=== PATIENT | female | born 1975 | race Asian ===

== ENCOUNTER 2016-10-02 14:05 | Emergency (ER) | payer OTHER ==
[~2016-10-02] VITALS: Ht 165.1 cm; Wt 60.0 kg
[2016-10-02 14:07] VITALS: BP 108/87; PULSE 103; RESP 16; TEMP 98.9; O2SAT 97
--- NOTE | 2016-10-02 15:05 | PD ---
HPI . patient here requesting pain medication Chief Complaint: Headache Time Seen by Provider: 15:05 Travel History International Travel<30 days: No Contact w/Intl Traveler<30days: No Traveled to known affect area: No History of Present Illness HPI 41 yr old female here tells me she was dropped off by Ms. Ramirez and she wants pain medication. She tells me someone named "Dereck" told her to come and ask for pain medication. She did not mention headache. When asked about it she says ibuprofen works well. She did not take any meds today. SHe has no suicide or homicide ideation. She tells me that sometimes she has a headache and "Dereck" told her to come and get pain meds. She answers questions appropriately, but seems a little confused. She says her caregiver dropper her off here. SHe knows where she is and responds appropriately to all her questions [facility] Past Medical History Cardiovascular Problems: Yes (HYPERLIPIDEMIA) High Cholesterol: Yes Diabetes: No Diminished Hearing: No Hypertension: Yes Musculoskeletal: Yes (CHRONIC LOWER BACK PAIN) Psychiatric: Yes (SCHIZOPHRENIC) Immunizations Current: Yes Schizophrenia: Yes Social History Alcohol Use: No Tobacco Use: Yes Substance Use: No Allergies-Medications (Allergen,Severity, Reaction): Coded Allergies: No Known Allergies (Verified , 01/27/16) Reported Meds & Prescriptions Reported Meds & Active Scripts Active Active Prescriptions or Reported Medications Unobtainable Review of Systems General / Constitutional: No: Fever Eyes: No: Visual changes HENT: No: Headaches Cardiovascular: No: Chest Pain or Discomfort Respiratory: No: Shortness of Breath Gastrointestinal: No: Abdominal Pain Genitourinary: No: Dysuria Musculoskeletal: No: Pain Skin: No Rash Neurologic: No: Weakness Psychiatric: No: Depression Endocrine: No: Polydipsia Hematologic/Lymphatic: No: Easy Bruising Physical Exam Narrative GENERAL:no acute distress, Well-nourished, well-developed patient. answers questions appropriately SKIN: Warm and dry. No visible rashes or bruising. HEAD: Normocephalic and atraumatic. EYES: No scleral icterus. No injection or drainage. EOM intact, PERRLA ENT: No nasal drainage noted. Mucous membranes pink. Airway patent. NECK: Supple, trachea midline. No JVD. CARDIOVASCULAR: Regular rate and rhythm without murmurs, gallops, or rubs. RESPIRATORY: Breath sounds equal bilaterally. No accessory muscle use. No rhonchi or rales. GASTROINTESTINAL: Abdomen soft, non-tender, nondistended. EXTREMITIES: No cyanosis or edema. BACK: Nontender without obvious deformity. No CVA tenderness. NEURO: CN II-12 intact, Data Data Last Documented VS Vital Signs Date Time Temp Pulse Resp B/P Pulse Ox O2 Delivery O2 Flow Rate FiO2 10/02/16 14:07 98.9 103 16 108/87 97 Room Air MDM Medical Decision Making Medical Screen Exam Complete: Yes Emergency Medical Condition: No Medical Record Reviewed: Yes Differential Diagnosis malingering, drug seeking behavior, hx of headache Narrative Course A medical screening exam was performed: At the time of evaluation the presenting medical condition was determined not to be of an emergent nature. The patient was given the option of receiving additional care, but declined. Patient was given options for additional community resources from which to obtain care. The Patient Has Been advised to seek medical attention for their presenting complaint. The patient has been advised to return to the ER at any time if an emergent condition develops. Patient has no evidence of psychiatric issues at this time. She is here asking for pain meds for "Dereck." I advised her that I could not provide pain meds. Diagnosis Primary Impression: Encounter for medical screening examination Scripts Unable to Obtain Active Prescriptions or Reported Meds Condition: Ayaka Monsalve Oct 02, 2016 15:05
== END 2016-10-02 16:23 | disposition left against medical advice (07) ==
LOC: NEPK 14:05
DX: R52 Pain, unspecified (principal); E78.00 Pure hypercholesterolemia, unspecified; E78.5 Hyperlipidemia, unspecified; I10 Essential (primary) hypertension; F20.9 Schizophrenia, unspecified
CPT/HCPCS: 99281

== ENCOUNTER 2017-03-21 09:45 | Inpatient (IN) | payer OTHER ==
[2017-03-21 09:52] VITALS: BP 104/79; PULSE 121; RESP 20; TEMP 97.9; O2SAT 95
[2017-03-21] MEDS ORDERED: SODIUM CHLORIDE 0.9% FLUSH 10 ML FLUSH IV FLUSH PRN ×2 (10:30→13:45)
[2017-03-21 10:54] VITALS: O2SAT 94
--- NOTE | 2017-03-21 11:20 | PD ---
HPI Chief Complaint: Fall Time Seen by Provider: 11:00 Travel History International Travel<30 days: No Contact w/Intl Traveler<30days: No Traveled to known affect area: No History of Present Illness HPI 41-year-old female patient who is has history of schizophrenia, bipolar disorder , presents to the ER today brought in by director of recruitment because of dizziness and frequent falls. Apparently she is constant falling and not able to stand up on her own today. Patient has no complaints, denies any injuries. However, it is unclear whether she is a reliable historian. Modifying Factors: None Associated Signs & Symptoms: Dizziness, falls Risk Factors: Schizophrenic PFSH Past Medical History Cardiovascular Problems: Yes (HYPERLIPIDEMIA) High Cholesterol: Yes Diabetes: No Diminished Hearing: No Hypertension: Yes Musculoskeletal: Yes (CHRONIC LOWER BACK PAIN) Psychiatric: Yes (SCHIZOPHRENIC) Immunizations Current: Yes Schizophrenia: Yes ?: Not Past Surgical History Surgical History: No Previous Surgery Social History Alcohol Use: No Tobacco Use: Yes (8 cig a day ) Substance Use: No Allergies-Medications (Allergen,Severity, Reaction): Coded Allergies: No Known Allergies (Verified Adverse Reaction, Unknown, 03/21/17) Reported Meds & Prescriptions Reported Meds & Active Scripts Active Active Prescriptions or Reported Medications Unobtainable Review of Systems ROS Limitations: Poor Historian (unreliable historian) Physical Exam Narrative GENERAL: Well-developed middle age female patient currently in mild distress. Awake and oriented 3. SKIN: Focused skin assessment warm/dry. HEAD: Atraumatic. Normocephalic. EYES: Pupils equal and round. No scleral icterus. No injection or drainage. ENT: No nasal bleeding or discharge. Mucous membranes pink and moist. NECK: Trachea midline. No JVD. Supple. CARDIOVASCULAR: Regular rate and rhythm. No murmur appreciated. RESPIRATORY: No accessory muscle use. Clear to auscultation. Breath sounds equal bilaterally. GASTROINTESTINAL: Abdomen soft, non-tender, nondistended. Hepatic and splenic margins not palpable. Pelvis: Stable and nontender to palpation. EXTREMITIES: No clubbing, cyanosis, or edema. No joint tenderness, effusion, or edema noted. No obvious deformities or bony injuries. Nontender to palpation. MUSCULOSKELETAL: No obvious deformities. No clubbing. No cyanosis. No edema. NEUROLOGICAL: Awake and alert. No obvious cranial nerve deficits. Motor grossly within normal limits. Normal speech. PSYCHIATRIC: Appropriate mood and flat affect; insight and judgment poor. Data Data Last Documented VS Vital Signs Date Time Temp Pulse Resp B/P (MAP) Pulse Ox O2 Delivery O2 Flow Rate FiO2 03/21/17 10:54 (87) 94 Room Air 03/21/17 10:54 108 18 03/21/17 09:52 97.9 Orders Orders Ammonia (03/21/17 10:28) Complete Blood Count With Diff (03/21/17 10:28) Comprehensive Metabolic Panel (03/21/17 10:28) Troponin I (03/21/17 10:28) Thyroid Stimulating Hormone (03/21/17 10:28) Urinalysis - C+S If Indicated (03/21/17 10:28) Ct Brain W/O Iv Contrast(Rout) (03/21/17 10:28) Blood Glucose (03/21/17 10:28) Ecg Monitoring (03/21/17 10:28) Iv Access Insert/Monitor (03/21/17 10:28) Oximetry (03/21/17 10:28) Sodium Chloride 0.9% Flush (Ns Flush) (03/21/17 10:30) Drug Screen, Random Urine (03/21/17 10:28) Alcohol (Ethanol) (03/21/17 10:28) Ed Urine Pregnancytest Poc (03/21/17 10:28) Valproic Acid (Depakene) (03/21/17 11:01) Urine Culture (03/21/17 11:00) Sodium Chlor 0.9% 1000 Ml Inj (Ns 1000 M (03/21/17 12:00) Blood Culture (03/21/17 11:52) Piperacil-Tazo 4.5 Gm Premix (Zosyn 4.5 (03/21/17 12:24) Admit Order (Ed Use Only) (03/21/17 13:22) Labs Laboratory Tests Test 03/21/17 11:00 03/21/17 11:30 Urine Color YELLOW Urine Turbidity HAZY Urine pH 6.0 Urine Specific [place] 1.015 Urine Protein 100 mg/dL Urine Glucose (UA) NEG mg/dL Urine Ketones NEG mg/dL Urine Occult Blood TRACE Urine Nitrite NEG Urine Bilirubin NEG Urine Urobilinogen LESS THAN 2.0 MG/DL Urine Leukocyte Esterase MOD Urine RBC 1 /hpf Urine WBC 41 /hpf Urine WBC Clumps RARE Urine Squamous Epithelial Cells 2 /hpf Urine Amorphous Sediment RARE Urine Bacteria MOD /hpf Urine Hyaline Casts 1 /lpf Urine Mucus FEW /lpf Microscopic Urinalysis Comment CATH-CULTURE IND Urine Opiates Screen NEG Urine Barbiturates Screen NEG Urine Amphetamines Screen NEG Urine Benzodiazepines Screen NEG Urine Cocaine Screen NEG Urine Cannabinoids Screen NEG White Blood Count 16.4 TH/MM3 Red Blood Count 3.34 MIL/MM3 Hemoglobin 11.3 GM/DL Hematocrit 32.8 % Mean Corpuscular Volume 98.2 FL Mean Corpuscular Hemoglobin 33.9 PG Mean Corpuscular Hemoglobin Concent 34.5 % Red Cell Distribution Width 14.3 % Platelet Count 102 TH/MM3 Mean Platelet Volume 7.9 FL Neutrophils (%) (Auto) 81.9 % Lymphocytes (%) (Auto) 5.1 % Monocytes (%) (Auto) 12.7 % Eosinophils (%) (Auto) 0.0 % Basophils (%) (Auto) 0.3 % Neutrophils # (Auto) 13.4 TH/MM3 Lymphocytes # (Auto) 0.8 TH/MM3 Monocytes # (Auto) 2.1 TH/MM3 Eosinophils # (Auto) 0.0 TH/MM3 Basophils # (Auto) 0.0 TH/MM3 CBC Comment AUTO DIFF Differential Total Cells Counted 100 Neutrophils % (Manual) 23 % Band Neutrophils % 67 % Lymphocytes % 2 % Monocytes % 7 % Neutrophils # (Manual) 14.9 TH/MM3 Myelocytes 1 % Differential Comment FINAL DIFF MANUAL Platelet Estimate LOW Platelet Morphology Comment NORMAL Red Cell Morphology Comment NORMAL Blood Urea Nitrogen 53 MG/DL Creatinine 1.71 MG/DL Random Glucose 108 MG/DL Total Protein 6.7 GM/DL Albumin 2.3 GM/DL Calcium Level 8.9 MG/DL Alkaline Phosphatase 100 U/L Aspartate Amino Transf (AST/SGOT) 19 U/L Alanine Aminotransferase (ALT/SGPT) 13 U/L Total Bilirubin 0.3 MG/DL Sodium Level 137 MEQ/L Potassium Level 3.8 MEQ/L Chloride Level 104 MEQ/L Carbon Dioxide Level 24.7 MEQ/L Anion Gap 8 MEQ/L Estimat Glomerular Filtration Rate 33 ML/MIN Ammonia LESS THAN 10 MCMOL/L Troponin I LESS THAN 0.02 NG/ML Thyroid Stimulating Hormone 3rd Gen 1.440 uIU/ML Valproic Acid (Depakene) Level 91 MCG/ML Ethyl Alcohol Level LESS THAN 3 MG/DL MDM Medical Decision Making Medical Screen Exam Complete: Yes Emergency Medical Condition: Yes Medical Record Reviewed: Yes Interpretation(s) Laboratory Tests Test 03/21/17 11:00 03/21/17 11:30 Urine Turbidity HAZY (CLEAR) Urine Protein 100 mg/dL (NEG-TRACE) Urine Occult Blood TRACE (NEG) Urine Leukocyte Esterase MOD (NEG) Urine WBC 41 /hpf (0-5) Urine WBC Clumps RARE (NONE) Urine Bacteria MOD /hpf (NONE) Urine Mucus FEW /lpf (OCC) White Blood Count 16.4 TH/MM3 (4.0-11.0) Red Blood Count 3.34 MIL/MM3 (4.00-5.30) Hemoglobin 11.3 GM/DL (11.6-15.3) Hematocrit 32.8 % (35.0-46.0) Platelet Count 102 TH/MM3 (150-450) Neutrophils (%) (Auto) 81.9 % (16.0-70.0) Lymphocytes (%) (Auto) 5.1 % (9.0-44.0) Monocytes (%) (Auto) 12.7 % (0.0-8.0) Neutrophils # (Auto) 13.4 TH/MM3 (1.8-7.7) Lymphocytes # (Auto) 0.8 TH/MM3 (1.0-4.8) Monocytes # (Auto) 2.1 TH/MM3 (0-0.9) Band Neutrophils % 67 % (0-6) Lymphocytes % 2 % (9-44) Neutrophils # (Manual) 14.9 TH/MM3 (1.8-7.7) Myelocytes 1 % (0-0) Platelet Estimate LOW (NORMAL) Blood Urea Nitrogen 53 MG/DL (7-18) Creatinine 1.71 MG/DL (0.50-1.00) Random Glucose 108 MG/DL (74-106) Albumin 2.3 GM/DL (3.4-5.0) Estimat Glomerular Filtration Rate 33 ML/MIN (>89) Ammonia LESS THAN 10 MCMOL/L Troponin I LESS THAN 0.02 NG/ML Last [address] 03/21/17 1028 Signed Impressions: Service Date/Time: March 11:10 - CONCLUSION: Unremarkable study. Osei Silverman MD Differential Diagnosis Dizziness, falling: Dehydration versus metabolic issues versus CVA versus medication toxicity Narrative Course CAT scan of the brain is negative for any signs of acute intracranial processes or injuries. Lab work shows significant UTI and sepsis and IV antibiotics were initiated in the ER cultures are drawn. Case is discussed with Dr. Keller for admission. Diagnosis Primary Impression: Severe sepsis Additional Impression: UTI (urinary tract infection) Admitting Information Admitting Physician Requests: Admit Scripts Unable to Obtain Active Prescriptions or Reported Meds Aniyah Tomas MD Mar 21, 2017 11:20
--- NOTE | 2017-03-21 11:21 | RADRPT ---
EXAM DATE/TIME: 03/21/2017 11:10 [place] COMPARISON: CT BRAIN W/O CONTRAST, June 08, 2012, 0:05. INDICATIONS : Altered mental status. RADIATION DOSE: 36.38 CTDIvol (mGy) MEDICAL HISTORY : Hypertension. SURGICAL HISTORY : None. ENCOUNTER: Initial ACUITY: 1 day PAIN SCALE: 0/10 LOCATION: cranial TECHNIQUE: Multiple contiguous axial images were obtained of the head. Using automated exposure control and adjustment of the mA and/or kV according to patient size, radiation dose was kept as low as reasonably achievable to obtain optimal diagnostic quality images. DICOM format image data is av ailable electronically for review and comparison. FINDINGS: There is no evidence for intracranial hemorrhage, mass effect, mass lesions, edema, or extra-axial fl uid collections. The visualized bony structures appear intact. The ventricles are normal size for t he patient's age. There are no signs of acute infarction for technique. CONCLUSION: Unremarkable study. Osei Silverman MD on March 21, 2017 at 11:18 Board Certified Radiologist. This report was verified electronically.
[2017-03-21 11:41] LABS: AUTOMATED NEUTROPHIL # 13.4 TH/MM3 (1.8-7.7); BASOPHIL % 0.3 % (0.0-2.0); HEMATOCRIT 32.8 % (35.0-46.0); HEMOGLOBIN 11.3 GM/DL (11.6-15.3); LYMPH % 5.1 % (9.0-44.0); LYMPHOCYTE # 0.8 TH/MM3 (1.0-4.8); MEAN CELL VOLUME 98.2 FL (80.0-100.0); MEAN CORPUSCULAR HEMOGLOBIN 33.9 PG (27.0-34.0); MEAN CORPUSCULAR HGB CONC 34.5 % (32.0-36.0); MEAN PLATELET VOLUME 7.9 FL (7.0-11.0); MONO % 12.7 % (0.0-8.0); MONOCYTE # 2.1 TH/MM3 (0-0.9); NEUT % 81.9 % (16.0-70.0); PLATELET COUNT 102 TH/MM3 (150-450); RED BLOOD COUNT 3.34 MIL/MM3 (4.00-5.30); RED CELL DISTRIBUTION WIDTH 14.3 % (11.6-17.2); WHITE BLOOD COUNT 16.4 TH/MM3 (4.0-11.0)
[2017-03-21 11:44] LABS: AMORPHOUS SEDIMENT, URINE RARE; BACTERIA, URINE MOD /hpf; BILIRUBIN, URINE NEG (NEG); BLOOD, URINE TRACE (NEG); GLUCOSE,URINE NEG (NEG); HYALINE CAST, URINE 1 /lpf (RARE); KETONE, URINE NEG (NEG); MUCUS URINE FEW /lpf (OCC); NITRITE,URINE NEG (NEG); SQUAMOUS EPITHELIAL CELL URINE 2 /hpf (0-5); URINE COLOR YELLOW (YELLW/STRAW); URINE LEUKOCYTE ESTERASE MOD (NEG); WHITE BLOOD CELL CLUMPS RARE
[2017-03-21 11:52] LABS: ALBUMIN 2.3 GM/DL (3.4-5.0); AST (GOT) 19 U/L (15-37); BICARBONATE 24.7 MEQ/L (21.0-32.0); BLOOD UREA NITROGEN 53 MG/DL (7-18); CALCIUM 8.9 MG/DL (8.5-10.1); CHLORIDE 104 MEQ/L (98-107); CREATININE 1.71 MG/DL (0.50-1.00); GLOMERULAR FILTRATION RATE 33 ML/MIN (>89); GLUCOSE,RANDOM 108 MG/DL (74-106); SODIUM (NA) 137 MEQ/L (136-145)
[2017-03-21] MEDS ORDERED: SODIUM CHLOR 0.9% 1000 ML INJ 1,000 ML IV ONE (12:00)
[2017-03-21 12:03] LABS: ALKALINE PHOSPHATASE 100 U/L (45-117); ALT (GPT) 13 U/L (10-53); TOTAL BILIRUBIN ADULT 0.3 MG/DL (0.2-1.0); TOTAL PROTEIN 6.7 GM/DL (6.4-8.2); TROPONIN I LESS THAN 0.02 NG/ML (0.02-0.05)
[2017-03-21 12:12] LABS: BANDS 67 % (0-6); LYMPHOCYTES 2 % (9-44); MONOCYTES 7 % (0-8); MYELOCYTES 1 % (0-0); NEUTROPHIL # MANUAL DIFF 14.9 TH/MM3 (1.8-7.7); POLYS (SEG NEUTROPHILS) 23 % (16-70)
[2017-03-21] MEDS ORDERED: PIPERACIL-TAZO 4.5 GM PREMIX 100 ML IV STA (12:24)
[2017-03-21 13:31] VITALS: BP 116/63; PULSE 102; RESP 16; O2SAT 100
--- NOTE | 2017-03-21 13:40 | HHI.HP ---
[facility] Service [facility] Primary Care Physician Layo Rodrigez DO Admission Diagnosis UTI/severe sepsis Diagnoses: Chief Complaint: sent from correction for evaluation Travel History International Travel<30 Days: No Contact w/Intl Traveler <30 Da: No Traveled to Known Affected Are: No History of Present Illness 41-year-old female with PMH of schizophrenia, bipolar disorder, presents to the ER today brought in by regulatory consultant because of dizziness and frequent falls. Apparently she is constant falling and not able to stand up on her own today. Patient has no complaints, denies any injuries. However, it is unclear whether she is a reliable historian. Patient is in bed appears sleepy , however she was noted agitated earlier. When asked questions patient responds with no to all questions. History obtained from records, customer care manager, staff, ED physician. Will attempt to obtain records. Review of Systems Except as stated in HPI: all other systems reviewed are Neg Past Family Social History Past Medical History Schizophrenia, bipolar disorder Past Surgical History No surgical surgeries Reported Medications Reported Meds & Active Scripts Active Active Prescriptions or Reported Medications Unobtainable Allergies: Coded Allergies: No Known Allergies (Verified Adverse Reaction, Unknown, 03/21/17) Family History When asked patient says no, however history not reliable 2/2 clinical condition Social History Tobacco use: Per records 8 cig a day. No illicit drug use or EtOH use. Physical Exam Vital Signs Vital Signs Date Time Temp Pulse Resp B/P (MAP) Pulse Ox O2 Delivery O2 Flow Rate FiO2 03/21/17 13:31 102 16 116/63 (80) 100 Room Air 03/21/17 10:54 (87) 94 Room Air 03/21/17 10:54 108 18 93 03/21/17 09:52 97.9 121 20 104/79 (87) 95 Room Air Physical Exam GENERAL: This is a middle age female, well-nourished, well-developed patient, sleepy at this time. SKIN: No rashes, ecchymoses or lesions. Cool and dry. HEAD: Atraumatic. Normocephalic. No temporal or scalp tenderness. EYES: Pupils equal round and reactive. Extraocular motions intact. No scleral icterus. No injection or drainage. ENT: Nose without bleeding, purulent drainage or septal hematoma. Throat without erythema, tonsillar hypertrophy or exudate. Uvula midline. Airway patent. NECK: Trachea midline. No JVD or lymphadenopathy. Supple, nontender, no meningeal signs. CARDIOVASCULAR: Regular rate and rhythm without murmurs, gallops, or rubs. RESPIRATORY: Clear to auscultation. Breath sounds equal bilaterally. No wheezes , rales, or rhonchi. GASTROINTESTINAL: Abdomen soft, non-tender, nondistended. No hepato-splenomegaly , or palpable masses. No guarding. MUSCULOSKELETAL: No obvious deformities. No clubbing. No cyanosis. No edema. No tender to palpation. NEUROLOGICAL: Awake and alert. No obvious cranial nerve deficits. Motor grossly within normal limits. Normal speech. PSYCHIATRIC: Appropriate mood and flat affect; insight and judgment poor. Laboratory Laboratory Tests Test 03/21/17 11:00 03/21/17 11:30 Urine Color YELLOW Urine Turbidity HAZY Urine pH 6.0 Urine Specific [place] 1.015 Urine Protein 100 Urine Glucose (UA) NEG Urine Ketones NEG Urine Occult Blood TRACE Urine Nitrite NEG Urine Bilirubin NEG Urine Urobilinogen LESS THAN 2.0 Urine Leukocyte Esterase MOD Urine RBC 1 Urine WBC 41 Urine WBC Clumps RARE Urine Squamous Epithelial Cells 2 Urine Amorphous Sediment RARE Urine Bacteria MOD Urine Hyaline Casts 1 Urine Mucus FEW Microscopic Urinalysis Comment CATH-CULTURE IND Urine Opiates Screen NEG Urine Barbiturates Screen NEG Urine Amphetamines Screen NEG Urine Benzodiazepines Screen NEG Urine Cocaine Screen NEG Urine Cannabinoids Screen NEG White Blood Count 16.4 Red Blood Count 3.34 Hemoglobin 11.3 Hematocrit 32.8 Mean Corpuscular Volume 98.2 Mean Corpuscular Hemoglobin 33.9 Mean Corpuscular Hemoglobin Concent 34.5 Red Cell Distribution Width 14.3 Platelet Count 102 Mean Platelet Volume 7.9 Neutrophils (%) (Auto) 81.9 Lymphocytes (%) (Auto) 5.1 Monocytes (%) (Auto) 12.7 Eosinophils (%) (Auto) 0.0 Basophils (%) (Auto) 0.3 Neutrophils # (Auto) 13.4 Lymphocytes # (Auto) 0.8 Monocytes # (Auto) 2.1 Eosinophils # (Auto) 0.0 Basophils # (Auto) 0.0 CBC Comment AUTO DIFF Differential Total Cells Counted 100 Neutrophils % (Manual) 23 Band Neutrophils % 67 Lymphocytes % 2 Monocytes % 7 Neutrophils # (Manual) 14.9 Myelocytes 1 Differential Comment FINAL DIFF MANUAL Platelet Estimate LOW Platelet Morphology Comment NORMAL Red Cell Morphology Comment NORMAL Blood Urea Nitrogen 53 Creatinine 1.71 Random Glucose 108 Total Protein 6.7 Albumin 2.3 Calcium Level 8.9 Alkaline Phosphatase 100 Aspartate Amino Transf (AST/SGOT) 19 Alanine Aminotransferase (ALT/SGPT) 13 Total Bilirubin 0.3 Sodium Level 137 Potassium Level 3.8 Chloride Level 104 Carbon Dioxide Level 24.7 Anion Gap 8 Estimat Glomerular Filtration Rate 33 Ammonia LESS THAN 10 Troponin I LESS THAN 0.02 Thyroid Stimulating Hormone 3rd Gen 1.440 Valproic Acid (Depakene) Level 91 Ethyl Alcohol Level LESS THAN 3 Date/Time Source Procedure Growth Status 03/21/17 12:56 Blood Peripheral Aerobic Blood Culture Pending Received 03/21/17 12:56 Blood Peripheral Anaerobic Blood Culture Pending Received 03/21/17 11:00 Urine Catheterized Urine Urine Culture Pending Worksheet Result Diagram: 03/21/17 1130 03/21/17 1130 Imaging Last Impressions Head CT 03/21/17 1028 Signed Impressions: Service Date/Time: March 11:10 - CONCLUSION: Unremarkable study. MD Fantasma Adrian VTE Risk Assessment Caprini VTE Risk Assessment: Mod/High Risk (score >= 2) Caprini Risk Assessment Model Point Value = 1 Point Value = 2 Point Value = 3 Point Value = 5 Age 41-60 Minor surgery BMI > 25 kg/m2 Swollen legs Varicose veins or History of unexplained or recurrent spontaneous Oral contraceptives or hormone replacement Sepsis (< 1 month) Serious lung disease, including pneumonia (< 1 month) Abnormal pulmonary function Acute myocardial infarction Congestive heart failure (< 1 month) History of inflammatory bowel disease Medical patient at bed rest Age 61-74 Arthroscopic surgery Major open surgery (> 45 min) Laparoscopic surgery (> 45 min) Malignancy Confined to bed (> 72 hours) Immobilizing plaster cast Central venous access Age >= 75 History of VTE Family history of VTE Factor V Leiden Prothrombin [id number] Lupus anticoagulant Anticardiolipin antibodies Elevated serum homocysteine Heparin-induced thrombocytopenia Other congenital or acquired thrombophilia Stroke (< 1 month) Elective arthroplasty Hip, pelvis, or leg fracture Acute spinal cord injury (< 1 month) Prophylaxis Regimen Total Risk Factor Score Risk Level Prophylaxis Regimen 0-1 Low Early ambulation 2 Moderate Order ONE of the following: *Sequential Compression Device (SCD) *Heparin 5000 units SQ BID 3-4 Higher Order ONE of the following medications: *Heparin 5000 units SQ TID *Enoxaparin/Lovenox 40 mg SQ daily (WT < 150 kg, CrCl > 30 mL/min) *Enoxaparin/Lovenox 30 mg SQ daily (WT < 150 kg, CrCl > 10-29 mL/min) *Enoxaparin/Lovenox 30 mg SQ BID (WT < 150 kg, CrCl > 30 mL/min) AND/OR *Sequential Compression Device (SCD) 5 or more Highest Order ONE of the following medications: *Heparin 5000 units SQ TID (Preferred with Epidurals) *Enoxaparin/Lovenox 40 mg SQ daily (WT < 150 kg, CrCl > 30 mL/min) *Enoxaparin/Lovenox 30 mg SQ daily (WT < 150 kg, CrCl > 10-29 mL/min) *Enoxaparin/Lovenox 30 mg SQ BID (WT < 150 kg, CrCl > 30 mL/min) AND *Sequential Compression Device (SCD) Assessment and Plan Assessment and Plan Severe Sepsis ( leukocytosis, tachycardia, UTI, acute renal insufficiency) CHAIM Schizophrenia Blood cultures and urine cultures obtained in the ED Received zosyn IV in the ED. Will give Rocephin IV abx as patient with CHAIM. Follow up cultures IVF Monitor Kidney function closely. Will obtain LA per sepsis protocol Restart home meds when available. Do reconciliation meds. DVT ppx SCD/TEDS/ Lovenox per renal dose Discussed Condition With patient, nurse Physician Certification 2 Midnight Certification Type: Admission for Inpatient Services Order for Inpatient Services The services are ordered in accordance with Medicare regulations or non- Medicare payer requirements, as applicable. In the case of services not specified as inpatient-only, they are appropriately provided as inpatient services in accordance with the 2-midnight benchmark. Estimated LOS (days): 3 days is the estimated time the patient will need to remain in the hospital, assuming treatment plan goals are met and no additional complications. Post-Hospital Plan: Home Notes: correction Ester Keller MD Mar 21, 2017 13:40
[2017-03-21] MEDS ORDERED: BISACODYL 10 MG SUPP RECTAL PRN (13:45)
[2017-03-21] MEDS ORDERED: SENNOSIDES 8.6 MG TAB PO PRN (13:45)
[2017-03-21] MEDS ORDERED: TEMAZEPAM 15 MG CAP PO PRN (13:45)
[2017-03-21] MEDS ORDERED: ONDANSETRON HCL 4 MG/2 ML VIAL IVP PRN (13:45)
[2017-03-21] MEDS ORDERED: LACTULOSE SYRUP 20 GM/30 ML CUP PO PRN (13:45)
[2017-03-21] MEDS ORDERED: ACETAMINOPHEN 325 MG TAB PO PRN (13:45)
[2017-03-21] MEDS ORDERED: NALOXONE HCL 0.4 MG/ML AMP IV PUSH PRN (13:45)
[2017-03-21] MEDS ORDERED: MAGNESIUM HYDROXIDE SUSP 30 ML CUP PO PRN (13:45)
[2017-03-21] MEDS ORDERED: ENOXAPARIN SODIUM 40 MG/0.4 ML SYRINGE SQ SCH (14:00)
[2017-03-21 14:03] VITALS: O2SAT 99
[2017-03-21] MEDS ORDERED: RISP4TAB41 PO (14:49)
[2017-03-21] MEDS ORDERED: TEMA30CA PO (14:49)
[2017-03-21] MEDS ORDERED: NAPR500T2 PO (14:49)
[2017-03-21] MEDS ORDERED: TRAZ100T10 PO (14:49)
[2017-03-21] MEDS ORDERED: DIVA250T PO (14:49)
[2017-03-21] MEDS ORDERED: SERO300T PO (14:49)
[2017-03-21 16:00] VITALS: BP 103/64; PULSE 93; RESP 16; TEMP 97.5; O2SAT 97
[2017-03-21] MEDS: SODIUM CHLOR 0.9% 1000 ML INJ 1,000 ML IV SCH (16:33)
[2017-03-21] MEDS: cefTRIAXone INJ 1,000 MG in SODIUM CHLORIDE 0.9% INJ 100 ML IV SCH (16:34)
[2017-03-21] MEDS: SODIUM CHLORIDE 0.9% FLUSH 10 ML FLUSH IV FLUSH SCH (20:54)
[2017-03-21] MEDS: DOCUSATE SODIUM 50 MG/SENNA 8.6 MG TAB PO SCH (20:55)
[2017-03-21 21:06] VITALS: BP 118/76; PULSE 100; RESP 17; TEMP 97.6; O2SAT 94
[2017-03-22 01:07] VITALS: BP 108/76; PULSE 95; RESP 17; TEMP 97.5; O2SAT 96
[2017-03-22] MEDS: SODIUM CHLOR 0.9% 1000 ML INJ 1,000 ML IV SCH ×3 (04:43→21:31)
[2017-03-22 05:59] VITALS: BP 116/71; PULSE 102; RESP 18; TEMP 98; O2SAT 94
[2017-03-22 07:18] LABS: HEMATOCRIT 30.6 % (35.0-46.0); HEMOGLOBIN 10.5 GM/DL (11.6-15.3); MEAN CELL VOLUME 98.6 FL (80.0-100.0); MEAN CORPUSCULAR HEMOGLOBIN 33.8 PG (27.0-34.0); MEAN CORPUSCULAR HGB CONC 34.3 % (32.0-36.0); MEAN PLATELET VOLUME 8.7 FL (7.0-11.0); PLATELET COUNT 76 TH/MM3 (150-450); RED CELL DISTRIBUTION WIDTH 14.6 % (11.6-17.2); WHITE BLOOD COUNT 12.8 TH/MM3 (4.0-11.0)
[2017-03-22 07:40] LABS: CALCIUM 8.7 MG/DL (8.5-10.1); CREATININE 1.02 MG/DL (0.50-1.00)
[2017-03-22] MEDS: SODIUM CHLORIDE 0.9% FLUSH 10 ML FLUSH IV FLUSH SCH ×2 (07:50→21:27)
[2017-03-22 08:00] VITALS: BP 105/57; PULSE 90; RESP 16; TEMP 98.8; O2SAT 95
[2017-03-22] MEDS: DOCUSATE SODIUM 50 MG/SENNA 8.6 MG TAB PO SCH ×2 (08:13→21:26)
--- NOTE | 2017-03-22 08:37 | HHI.PR ---
Subjective Remarks In the bed appears in nad. Doesn't answer questions and doesn't follow commands. Doesn't appear toxic. Objective Vitals Vital Signs Date Time Temp Pulse Resp B/P (MAP) Pulse Ox O2 Delivery O2 Flow Rate FiO2 03/22/17 05:59 98.0 102 18 116/71 (86) 94 03/22/17 01:07 97.5 95 17 108/76 (87) 96 03/21/17 21:06 97.6 100 17 118/76 (90) 94 03/21/17 16:00 97.5 93 16 103/64 (77) 97 03/21/17 15:28 (80) 21 03/21/17 14:03 99 21 03/21/17 13:31 102 16 116/63 (80) 100 Room Air 03/21/17 10:54 (87) 94 Room Air 03/21/17 10:54 108 18 93 03/21/17 09:52 97.9 121 20 104/79 (87) 95 Room Air I/O 03/21/17 03/21/17 03/21/17 03/22/17 03/22/17 03/22/17 07:00 15:00 23:00 07:00 15:00 23:00 Intake Total 1100 ml 120 ml Balance 1100 ml 120 ml Intake Oral 120 ml IV Total 1100 ml # Voids 1 1 Result Diagram: 03/22/17 0555 03/22/17 0555 Imaging Last Impressions Head CT 03/21/17 1028 Signed Impressions: Service Date/Time: March 11:10 - CONCLUSION: Unremarkable study. KBrenna Silverman MD Objective Remarks GENERAL: This is a middle age female, well-nourished, well-developed patient, sleepy at this time. CARDIOVASCULAR: Regular rate and rhythm without murmurs, gallops, or rubs. RESPIRATORY: Clear to auscultation. Breath sounds equal bilaterally. No wheezes , rales, or rhonchi. GASTROINTESTINAL: Abdomen soft, non-tender, nondistended. No hepato-splenomegaly , or palpable masses. No guarding. MUSCULOSKELETAL: No obvious deformities. No clubbing. No cyanosis. No edema. No tender to palpation. NEUROLOGICAL: Awake and alert. No obvious cranial nerve deficits. Motor grossly within normal limits. Normal speech. PSYCHIATRIC: Appropriate mood and flat affect; insight and judgment poor. A/P Assessment and Plan Severe Sepsis (leukocytosis, tachycardia, UTI, acute renal insufficiency). Improving. CHAIM Schizophrenia Blood cultures and urine cultures obtained in the ED Received zosyn IV in the ED. Will give Rocephin IV abx as patient with CHAIM. Follow up cultures IVF Monitor Kidney function closely Will obtain LA per sepsis protocol Restart home meds when available. Do reconciliation meds Consult psych , discussed with Dr Morfin will obtain meds otherwise patien tmight be DC to med psych for further treatment DVT ppx SCD/TEDS/ Lovenox per renal dose Discussed Condition With patient, nurse, Ester Taylor MD Mar 22, 2017 08:37
[2017-03-22 08:38] LABS: BANDS 33 % (0-6); LYMPHOCYTES 2 % (9-44); METAMYELOCYTES 2 % (0-1); MONOCYTES 11 % (0-8); MYELOCYTES 4 % (0-0); NEUTROPHIL # MANUAL DIFF 11.1 TH/MM3 (1.8-7.7); POLYS (SEG NEUTROPHILS) 48 % (16-70)
[2017-03-22 08:39] LABS: DOHLE BODIES PRESENT (NONE SEEN); TOXIC GRANULATION 1+ (NORMAL)
[2017-03-22 12:00] VITALS: BP 110/63; PULSE 88; RESP 16; TEMP 97.9; O2SAT 98
--- NOTE | 2017-03-22 13:35 | PD.PSY.CON ---
Provisional Diagnosis Admission Date Mar 21, 2017 at 13:23 [place] I. Schizophrenia [place] II. Deferred [place] III. UTI, sepsis History of Present Illness Service Psychiatry Consult Requested By Primary attending Reason for Consult History of schizophrenia Primary Care Physician Layo Rodrigez, DO HPI The patient is a 41-year-old woman, single, domiciled, with psychiatric history of schizophrenia, bipolar disorder, multiple psychiatric hospitalizations, he was hospitalized here at [place] in 2013 under the care of Dr. Kirby, documentation review, I do not have details about take at hospitalizations, as per records she is on Depakote 250 mg, Risperdal 4 mg, Seroquel 600 mg, temazepam 30 mg, trazodone 100 mg, recurrent Depakote levels are 91, no significant medical history, who presents to the ER today brought in by instrument maker apprentice because of dizziness and frequent falls. Apparently she is constant falling and not able to stand up on her own today. Patient has no complaints, denies any injuries. However, it is unclear whether she is a reliable historian. Patient is in bed appears sleepy , however she was noted agitated earlier. When asked questions patient responds with no to all questions. History obtained from records, resident care coordinator, staff, ED physician. Will attempt to obtain records. She is admitted with sepsis and UTI. Consulted to psychiatry for reconciliation of medication and disorganized speech and behavior. On psychiatric evaluation patient is non-cooperative. She is restrained in 2 points. Patient at the beginning is sleeping, but easily arousable. Oppositional, resistant, but with redirection she could answer some questions. She says that she feels okay. She doesn't know the reason she is here. She knows she is in [place], but doesn't remember the time. She says that we are 1974. She reports good mood, denies depression, denies suicidal and homicidal ideation. Patient says that she is hearing voices telling her to bang her head. She says also that she hears the voice of Dereck and Yamilex. She says that they are good people and they want her to go to their house to age seems to be very tangential, disorganized, unable to provide any meaningful information for the psychiatric assessment. As per nursing charge patient has been kind of agitated, very confused, hyperactive. Review of Systems Constitutional: DENIES: Diaphoretic episodes, Fatigue, Fever, Weight gain, Weight loss, Chills, Dizziness, Change in appetite, Night Sweats Endocrine: DENIES: Abnorml menstrual pattern, Heat/cold intolerance, Polydipsia , Polyuria, Polyphagia Ears, nose, mouth, throat: DENIES: Tinnitus, Hearing loss, Vertigo, Nasal discharge, Oral lesions, Throat pain, Hoarseness, Ear Pain, Running Nose, Epistaxis, Sinus Pain, Toothache, Odynophagia Respiratory: DENIES: Apneas, Cough, Snoring, Wheezing, Hemoptysis, Sputum production, Shortness of breath Cardiovascular: DENIES: Chest pain, Palpitations, Syncope, Dyspnea on Exertion , PND, Lower Extremity Edema, Orthopnea, Claudication Gastrointestinal: DENIES: Abdominal pain, Black stools, Bloody stools, Constipation, Diarrhea, Nausea, Vomiting, Difficulty Swallowing, Anorexia Genitourinary: DENIES: Abnormal vaginal bleeding, Dysmenorrhea, Dyspareunia, Sexual dysfunction, Urinary frequency, Urinary incontinence, Urgency, Hematuria , Dysuria, Nocturia, Vaginal discharge Musculoskeletal: DENIES: Joint pain, Muscle aches, Stiffness, Joint Swelling, Back pain, Neck pain Integumentary: DENIES: Abnormal pigmentation, Pruritus, Rash, Nail changes, Breast masses, Breast skin changes, Nipple discharge Hematologic/lymphatic: DENIES: Bruising, Lymphadenopathy Immunologic/allergic: DENIES: Eczema, Urticaria Neurologic: DENIES: Abnormal gait, Headache, Localized weakness, Paresthesias, Seizures, Speech Problems, Tremor, Poor Balance Psychiatric: DENIES: Anxiety, Confusion, Mood changes, Depression, Hallucinations, Agitation, Suicidal Ideation, Homicidal Ideation, Delusions Past Family Social History Coded Allergies: No Known Allergies (Verified Adverse Reaction, Unknown, 03/21/17) Reported Medications Risperidone (Risperdal) 4 Mg Tab, 4 MG PO DAILY, #30 TAB 0 Refills 03/21/17 Trazodone (Trazodone) 100 Mg Tablet, 100 MG PO HS for Control Depression, #30 TAB 0 Refills 03/21/17 Temazepam (Temazepam) 30 Mg Cap, 30 MG PO HS Y for INSOMNIA, #30 CAP 0 Refills 03/21/17 Quetiapine (Seroquel) 300 Mg Tab, 600 MG PO HS, #30 TAB 0 Refills 1/4/[address] (Divalproex DR) 250 Mg Tabdr, 250 MG PO BID for Control Seizures, #60 TAB 0 Refills 03/21/17 Naproxen (Naproxen) 500 Mg Tab, 500 MG PO BID, #60 TAB 0 Refills 03/21/17 Current Medications Medications (Trade) Dose Ordered Sig/Deonte Route Start Time Stop Time Status Last Admin Sodium Chloride 1,000 ml @ 100 mls/hr Q10H IV 03/21/17 13:38 03/22/17 04:43 (NS Flush) 2 ml UNSCH PRN IV FLUSH 03/21/17 13:45 (NS Flush) 2 ml BID IV FLUSH 03/21/17 21:00 03/21/17 20:54 (Tylenol) 650 mg Q4H PRN PO 03/21/17 13:45 (Zofran Inj) 4 mg Q6H PRN IVP 03/21/17 13:45 (Restoril) 15 mg HS PRN PO 03/21/17 13:45 (Lovenox Inj) 40 mg Q24H SQ 03/21/17 14:00 03/21/17 16:33 (Narcan Inj) 0.4 mg UNSCH PRN IV PUSH 03/21/17 13:45 (Denisse-Colace) 1 tab BID PO 03/21/17 21:00 03/22/17 08:13 (Milk Of Magnesia Liq) 30 ml Q12H PRN PO 03/21/17 13:45 (Senokot) 17.2 mg Q12H PRN PO 03/21/17 13:45 (Dulcolax Supp) 10 mg DAILY PRN RECTAL 03/21/17 13:45 (Lactulose Liq) 30 ml DAILY PRN PO 03/21/17 13:45 Ceftriaxone Sodium 1000 mg/ Sodium Chloride 100 ml @ 200 mls/hr Q24H IV 03/21/17 15:00 03/21/17 16:34 Family Psych History Patient is too disorganized to cooperate with this information Social History Patient is too disorganized to cooperate with this information Patient's Strengths (min. 2) She seems to be aching her psychotropics, her Valproic acid level is level was 91 Physical Exam Vital Signs Vital Signs Date Time Temp Pulse Resp B/P (MAP) Pulse Ox O2 Delivery O2 Flow Rate FiO2 03/22/17 08:00 98.8 90 16 105/57 (73) 95 03/21/17 15:28 21 03/21/17 13:31 Room Air Lab Results Test 03/21/17 17:43 03/22/17 05:55 Lactic Acid Level 1.6 mmol/L White Blood Count 12.8 TH/MM3 Red Blood Count 3.10 MIL/MM3 Hemoglobin 10.5 GM/DL Hematocrit 30.6 % Mean Corpuscular Volume 98.6 FL Mean Corpuscular Hemoglobin 33.8 PG Mean Corpuscular Hemoglobin Concent 34.3 % Red Cell Distribution Width 14.6 % Platelet Count 76 TH/MM3 Mean Platelet Volume 8.7 FL CBC Comment AUTO DIFF Differential Total Cells Counted 100 Neutrophils % (Manual) 48 % Band Neutrophils % 33 % Lymphocytes % 2 % Monocytes % 11 % Neutrophils # (Manual) 11.1 TH/MM3 Metamyelocytes 2 % Myelocytes 4 % Differential Comment FINAL DIFF MANUAL Toxic Granulation 1+ Dohle Bodies PRESENT Platelet Estimate LOW Platelet Morphology Comment NORMAL Blood Urea Nitrogen 30 MG/DL Creatinine 1.02 MG/DL Random Glucose 103 MG/DL Calcium Level 8.7 MG/DL Sodium Level 141 MEQ/L Potassium Level 4.0 MEQ/L Chloride Level 111 MEQ/L Carbon Dioxide Level 23.0 MEQ/L Anion Gap 7 MEQ/L Estimat Glomerular Filtration Rate 59 ML/MIN Date/Time Source Procedure Growth Status 03/21/17 12:56 Blood Peripheral Aerobic Blood Culture - Preliminary NO GROWTH IN 1 DAY Resulted 03/21/17 12:56 Blood Peripheral Anaerobic Blood Culture - Preliminary NO GROWTH IN 1 DAY Resulted 03/21/17 11:00 Urine Catheterized Urine Urine Culture - Preliminary Gram Negative Jw Resulted Mental Status Examination Appearance: Disheveled Orientation: Person, Place Motor Activity: Abnormal gait Speech: Rapid, Incoherent Fund of Knowledge: Inadequate Attention and Concentration: Easily Distracted Memory: Impaired Mood: Oppositional Affect: Irritable Thought Process & Associations: Loose associations, Disorganized Thought Content: Bizarre thinking Hallucination Type: Auditory Delusion Type: None Suicidal Ideation: No Suicidal Plan: No Suicidal Intention: No Homicidal Ideation: No Homicidal Plan: No Homicidal Intention: No Insight: Poor Judgment: Poor Assessment & Plan Problem List: (1) Schizophrenia ICD Codes: F20.9 - Schizophrenia Status: Acute Assessment & Plan: The patient has had psychiatric history of schizophrenia, she has some point encounters and hospitalizations here in [place], documentation was reviewed. At the moment of my evaluation today the patient seems to be very confused, disorganized, tangential, unable to provide any meaningful information for the psychiatric assessment. As per records the patient has been in Risperdal 4 mg, Seroquel 600 mg, trazodone 100 mg temazepam 30 mg and valproic acid 250 minute 1 twice a day. Her Depakote level is 91, which mean that most probably the patient has been compliant with her psychotropics. At this moment I do not have any collateral information, have tried to call Hailee Vega [phone] and also Geraldo Reynoso [phone], both person listed as contact in the record, but they did not diamond picker the phone. Collateral is crucial to confirm baseline. I am going to restart the Seroquel 600 mg, Depakote 250 mg and Trazodone 100 mg. I will follow-up. Assessment & Plan Estimated LOS: Mane Kang MD Mar 22, 2017 13:35
[2017-03-22] MEDS: DIVALPROEX SODIUM DELAYED RELEASE 250 MG TAB PO SCH ×2 (14:41→21:26)
[2017-03-22] MEDS: cefTRIAXone INJ 1,000 MG in SODIUM CHLORIDE 0.9% INJ 100 ML IV SCH (14:41)
[2017-03-22 16:00] VITALS: BP 108/69; PULSE 88; RESP 16; TEMP 97.5; O2SAT 99
[2017-03-22 20:00] VITALS: BP 109/63; PULSE 97; RESP 18; TEMP 97.5; O2SAT 95
[2017-03-22] MEDS: traZODone HCL 100 MG TAB PO SCH (21:26)
[2017-03-22] MEDS: QUEtiapine FUMARATE 300 MG TAB PO SCH (21:26)
--- NOTE | 2017-03-22 22:41 | EKG ---
Date Performed: 03/21/2017 Time Performed: 19:46:15 PTAGE: 41 years EKG: SINUS TACHYCARDIA NONSPECIFIC T-WAVE ABNORMALITY ABNORMAL RHYTHM ECG PREVIOUS TRACING : 09/08/2000 11.35 Compared to prior tracing no significant change DOCTOR: Wolf Brian Interpretating Date/Time 03/22/2017 22:41:10
[2017-03-23] VITALS: BP 101/57; PULSE 83; RESP 18; TEMP 98.6; O2SAT 98
[2017-03-23] MEDS: SODIUM CHLOR 0.9% 1000 ML INJ 1,000 ML IV SCH ×2 (05:38→08:42)
[2017-03-23 07:41] VITALS: BP 104/63; PULSE 90; RESP 18; TEMP 99.2; O2SAT 95
[2017-03-23 08:38] LABS: HEMATOCRIT 31.4 % (35.0-46.0); HEMOGLOBIN 10.6 GM/DL (11.6-15.3); MEAN CELL VOLUME 98.6 FL (80.0-100.0); MEAN CORPUSCULAR HEMOGLOBIN 33.3 PG (27.0-34.0); MEAN CORPUSCULAR HGB CONC 33.7 % (32.0-36.0); MEAN PLATELET VOLUME 8.6 FL (7.0-11.0); PLATELET COUNT 72 TH/MM3 (150-450); RED BLOOD COUNT 3.18 MIL/MM3 (4.00-5.30); RED CELL DISTRIBUTION WIDTH 14.6 % (11.6-17.2); WHITE BLOOD COUNT 7.5 TH/MM3 (4.0-11.0)
[2017-03-23] MEDS: DIVALPROEX SODIUM DELAYED RELEASE 250 MG TAB PO SCH ×2 (08:42→21:37)
[2017-03-23] MEDS: DOCUSATE SODIUM 50 MG/SENNA 8.6 MG TAB PO SCH ×2 (08:42→21:36)
[2017-03-23] MEDS: SODIUM CHLORIDE 0.9% FLUSH 10 ML FLUSH IV FLUSH SCH ×2 (08:42→21:35)
--- NOTE | 2017-03-23 09:01 | HHI.PR ---
Subjective Remarks Follow up UTI, sepsis, acute kidney injury. The patient reports no complaints at this time. She denies chest pain, dyspnea, nausea, vomiting. Objective Vitals Vital Signs Date Time Temp Pulse Resp B/P (MAP) Pulse Ox O2 Delivery O2 Flow Rate FiO2 03/23/17 07:41 99.2 90 18 104/63 (77) 95 03/23/17 00:00 98.6 83 18 101/57 (72) 98 03/22/17 20:00 97.5 97 18 109/63 (78) 95 03/22/17 16:00 97.5 88 16 108/69 (82) 99 03/22/17 12:00 97.9 88 16 110/63 (79) 98 I/O 03/22/17 03/22/17 03/22/17 03/23/17 03/23/17 03/23/17 07:00 15:00 23:00 07:00 15:00 23:00 Intake Total 966 ml 800 ml Balance 966 ml 800 ml IV Total 966 ml 800 ml # Voids 1 1 2 4 # Bowel Movements 1 3 2 Result Diagram: 03/23/17 0822 03/22/17 0555 Imaging Last Impressions Head CT 03/21/17 1028 Signed Impressions: Service Date/Time: March 11:10 - CONCLUSION: Unremarkable study. Osei Silverman MD Objective Remarks General: No acute distress. In soft wrist restraint. Heart: Regular rate and rhythm. No murmur. Lungs: Clear to auscultation bilaterally. No wheezes, rales, or rhonchi. Breathing is nonlabored. Abdomen: Soft, nontender, nondistended. Extremities: No lower extremity edema. Psych: Alert, answers questions appropriately. Procedures None Urinary Catheter: No Vascular Central Line Catheter: No A/P Assessment and Plan 1. Severe sepsis: Patient presented with leukocytosis, tachycardia, UTI, acute renal insufficiency. Continue antibiotics. Blood cultures are negative so far. Urine culture growing Escherichia coli, sensitive to Rocephin. 2. Acute kidney injury: Creatinine trending down. Labs are pending this morning. Continue IV fluids. 3. Schizophrenia: Appreciate psychiatry recommendations. Continue Seroquel. 4. DVT prophylaxis: SCDs, Oral Grider. Beau Schaefer MD 6, 2018 09:01
[2017-03-23 09:07] LABS: BICARBONATE 22.2 MEQ/L (21.0-32.0); CALCIUM 8.5 MG/DL (8.5-10.1); CREATININE 0.73 MG/DL (0.50-1.00)
[2017-03-23 09:21] LABS: BANDS 8 % (0-6); LYMPHOCYTES 17 % (9-44); METAMYELOCYTES 4 % (0-1); MONOCYTES 14 % (0-8); MYELOCYTES 2 % (0-0); NEUTROPHIL # MANUAL DIFF 5.2 TH/MM3 (1.8-7.7); POLYS (SEG NEUTROPHILS) 54 % (16-70); PROMYELOCYTES 1 % (0-0)
[2017-03-23 09:39] VITALS: O2SAT 94
[2017-03-23 11:57] VITALS: BP 116/68; PULSE 92; RESP 18; TEMP 98.1; O2SAT 95
[2017-03-23 16:36] VITALS: BP 134/73; PULSE 94; RESP 20; TEMP 98.9; O2SAT 96
[2017-03-23] MEDS: cefTRIAXone INJ 1,000 MG in SODIUM CHLORIDE 0.9% INJ 100 ML IV SCH (18:22)
[2017-03-23 20:47] VITALS: BP 112/57; PULSE 95; RESP 18; TEMP 99.6; O2SAT 94
[2017-03-23] MEDS: QUEtiapine FUMARATE 300 MG TAB PO SCH (21:36)
[2017-03-23] MEDS: traZODone HCL 100 MG TAB PO SCH (21:36)
[2017-03-24] VITALS (8 sets, daily range): BP systolic 116–134; BP diastolic 56–74; PULSE 90–97; RESP 18–20; TEMP 98.4–99.2; O2SAT 93–95
[2017-03-24] MEDS: SODIUM CHLOR 0.9% 1000 ML INJ 1,000 ML IV SCH ×3 (00:47→21:38)
--- NOTE | 2017-03-24 09:06 | HHI.PR ---
Subjective Remarks Follow up UTI, confusion. Patient reports no complaints at this time. Per nursing, no events overnight. Objective Vitals Vital Signs Date Time Temp Pulse Resp B/P (MAP) Pulse Ox O2 Delivery O2 Flow Rate FiO2 03/24/17 07:59 99.2 93 20 116/56 (76) 95 03/24/17 05:53 98.9 97 18 121/74 (90) 93 03/24/17 02:00 98.4 92 18 117/72 (87) 94 03/23/17 20:47 99.6 95 18 112/57 (75) 94 03/23/17 16:36 98.9 94 20 134/73 (93) 96 03/23/17 11:57 98.1 92 18 116/68 (84) 95 03/23/17 09:39 94 21 I/O 03/23/17 03/23/17 03/23/17 03/24/17 03/24/17 03/24/17 07:00 15:00 23:00 07:00 15:00 23:00 Intake Total 800 ml 1000 ml 1220 ml Balance 800 ml 1000 ml 1220 ml Intake Oral 120 ml IV Total 800 ml 1000 ml 1100 ml # Voids 4 3 # Bowel Movements 2 1 Result Diagram: 03/23/17 0822 03/23/17 0822 Imaging Last Impressions Head CT 03/21/17 1028 Signed Impressions: Service Date/Time: March 11:10 - CONCLUSION: Unremarkable study. Osei Silverman MD Objective Remarks General: No acute distress. In soft wrist restraint. Heart: Regular rate and rhythm. No murmur. Lungs: Clear to auscultation bilaterally. No wheezes, rales, or rhonchi. Breathing is nonlabored. Abdomen: Soft, nontender, nondistended. Extremities: No lower extremity edema. Psych: Alert, answers questions appropriately. Procedures None Urinary Catheter: No Vascular Central Line Catheter: No A/P Assessment and Plan 1. Severe sepsis: Patient presented with leukocytosis, tachycardia, UTI, acute renal insufficiency. Continue antibiotics. Blood cultures are negative so far. Urine culture growing Escherichia coli, sensitive to Rocephin. 2. Acute kidney injury: Resolved. 3. Schizophrenia: Appreciate psychiatry recommendations. Continue Seroquel. 4. DVT prophylaxis: SCDs, Oral Grider. Discharge Planning Plan for discharge to [facility] soon, pending psychiatry clearance. Beau Schaefer MD Mar 24, 2017 09:06
[2017-03-24] MEDS: DOCUSATE SODIUM 50 MG/SENNA 8.6 MG TAB PO SCH ×2 (12:48→22:18)
[2017-03-24] MEDS: DIVALPROEX SODIUM DELAYED RELEASE 250 MG TAB PO SCH ×2 (12:48→22:18)
[2017-03-24] MEDS: cefTRIAXone INJ 1,000 MG in SODIUM CHLORIDE 0.9% INJ 100 ML IV SCH (18:08)
[2017-03-24] MEDS: SODIUM CHLORIDE 0.9% FLUSH 10 ML FLUSH IV FLUSH SCH ×2 (18:11→22:18)
[2017-03-24] MEDS: traZODone HCL 100 MG TAB PO SCH (22:17)
[2017-03-24] MEDS: QUEtiapine FUMARATE 300 MG TAB PO SCH (22:17)
[2017-03-25] VITALS (7 sets, daily range): BP systolic 116–129; BP diastolic 56–71; PULSE 79–90; RESP 15–19; TEMP 98.3–99.6; O2SAT 91–99
[2017-03-25] MEDS: SODIUM CHLOR 0.9% 1000 ML INJ 1,000 ML IV SCH ×2 (06:45→16:32)
[2017-03-25] MEDS: DIVALPROEX SODIUM DELAYED RELEASE 250 MG TAB PO SCH ×2 (09:15→21:16)
[2017-03-25] MEDS: DOCUSATE SODIUM 50 MG/SENNA 8.6 MG TAB PO SCH ×2 (09:15→21:16)
[2017-03-25] MEDS: SODIUM CHLORIDE 0.9% FLUSH 10 ML FLUSH IV FLUSH SCH ×2 (09:15→21:00)
--- NOTE | 2017-03-25 09:19 | HHI.PR ---
Subjective Remarks Follow up UTI, confusion. Patient denies pain. No events reported by nursing. Objective Vitals Vital Signs Date Time Temp Pulse Resp B/P (MAP) Pulse Ox O2 Delivery O2 Flow Rate FiO2 03/25/17 08:27 99.4 90 16 116/66 (83) 91 03/25/17 07:17 92 21 03/25/17 06:59 99.6 79 18 129/71 (90) 94 03/25/17 01:32 99.0 87 18 118/61 (80) 99 03/24/17 20:40 99.1 92 18 126/66 (86) 94 03/24/17 17:30 94 21 03/24/17 16:05 99.2 90 20 134/60 (84) 94 03/24/17 12:40 98.6 91 20 120/72 (88) 95 I/O 03/24/17 03/24/17 03/24/17 03/25/17 03/25/17 03/25/17 07:00 15:00 23:00 07:00 15:00 23:00 Intake Total 660 ml 1000 ml Balance 660 ml 1000 ml Intake Oral 660 ml IV Total 1000 ml # Voids 2 3 2 # Bowel Movements 1 1 2 Result Diagram: 03/23/17 0822 03/23/17 0822 Imaging Last Impressions Head CT 03/21/17 1028 Signed Impressions: Service Date/Time: March 11:10 - CONCLUSION: Unremarkable study. Osei Silverman MD Objective Remarks General: No acute distress. In soft wrist restraints. Heart: Regular rate and rhythm. No murmur. Lungs: Clear to auscultation bilaterally. No wheezes, rales, or rhonchi. Breathing is nonlabored. Abdomen: Soft, nontender, nondistended. Extremities: No lower extremity edema. Psych: Alert, confused. Procedures None Urinary Catheter: No Vascular Central Line Catheter: No A/P Assessment and Plan 03/25/17 No change. Continue antibiotics, likely switch to oral at discharge. Awaiting psychiatry clearance [facility]. Will try to remove restraints today. 1. Severe sepsis: Patient presented with leukocytosis, tachycardia, UTI, acute renal insufficiency. Continue antibiotics. Blood cultures are negative so far. Urine culture growing Escherichia coli, sensitive to Rocephin. 2. Acute kidney injury: Resolved. 3. Schizophrenia: Appreciate psychiatry recommendations. Continue Seroquel. 4. DVT prophylaxis: EMERYs, Oral Grider. Discharge Planning Plan for discharge to prison soon, pending psychiatry clearance. Beau Schaefer MD Mar 25, 2017 09:19
--- NOTE | 2017-03-25 10:25 | HHI.PYPN ---
Subjective Remarks I have seen and examined this patient for psychiatric reevaluation today. I have reviewed the documentation from hospitalist. I also have discussed the patient with the nurse in charge. On psychiatric evaluation today patient continues to be restrained in upper extremities. Patient is calm, superficially cooperative, pleasantly confused and disoriented. Patient answers simple questions, but doesn't elaborate. During my evaluation patient continues to be smiling, appropriate, she says that she is happy, she denies pain, denies depressive symptoms, denies suicidal or homicidal ideation, she denies visual and auditory hallucinations. Even though the patient seems to have a disorganized and tangential thought process, that reportedly her baseline , she is able to say that she is in the hospital because she is sick, but she doesn't remember today's date. As per nurse no agitation or aggressive behavior reported. No behavioral dysregulation reported. She has been compliant with her medications, side effects. Review of Systems Psychiatric: COMPLAINS OF: Confusion Mental Status Examination Appearance: Disheveled Orientation: Person, Place Motor Activity: Abnormal gait Speech: Rapid, Incoherent Fund of Knowledge: Inadequate Attention and Concentration: Easily Distracted Memory: Impaired Mood: Oppositional Affect: Irritable Thought Process & Associations: Loose associations, Disorganized Thought Content: Bizarre thinking Hallucination Type: Auditory Delusion Type: None Suicidal Ideation: No Suicidal Plan: No Suicidal Intention: No Homicidal Ideation: No Homicidal Plan: No Homicidal Intention: No Insight: Poor Judgment: Poor Results Labs Date/Time Source Procedure Growth Status 03/21/17 12:56 Blood Peripheral Aerobic Blood Culture - Preliminary NO GROWTH IN 3 DAYS Resulted 03/21/17 12:56 Blood Peripheral Anaerobic Blood Culture - Preliminary NO GROWTH IN 3 DAYS Resulted 03/21/17 11:00 Urine Catheterized Urine Urine Culture - Final Escherichia Coli Complete Vitals/IOs Vital Signs Date Time Temp Pulse Resp B/P (MAP) Pulse Ox O2 Delivery O2 Flow Rate FiO2 03/25/17 08:27 99.4 90 16 116/66 (83) 91 03/25/17 07:17 21 03/21/17 13:31 Room Air Intake and Output 03/25/17 03/25/17 03/26/17 08:00 16:00 00:00 Intake Total 1000 ml Balance 1000 ml Assessment & Plan Problem List: (1) Schizophrenia ICD Codes: F20.9 - Schizophrenia Status: Acute Assessment & Plan: Continue current psychotropic regimen. Patient seems to be at baseline. I planned with nursing charge to free the patient for restrains and if patient can tolerate without behavioral dysregulation I do not have any objection with discharging the patient back to her residential facility. Assessment & Plan Estimated LOS: days Justification for Cont. Inpt. Unlikely that the patient needs psychiatric admission. Mane Morfin MD Mar 25, 2017 10:25
[2017-03-25] MEDS: cefTRIAXone INJ 1,000 MG in SODIUM CHLORIDE 0.9% INJ 100 ML IV SCH (14:08)
[2017-03-25 15:35] LABS: AUTOMATED NEUTROPHIL # 9.6 TH/MM3 (1.8-7.7); BASOPHIL # 0.1 TH/MM3 (0-0.2); BASOPHIL % 0.6 % (0.0-2.0); EOSINOPHIL # 0.2 TH/MM3 (0-0.4); EOSINOPHIL % 1.2 % (0.0-4.0); HEMATOCRIT 30.3 % (35.0-46.0); HEMOGLOBIN 10.5 GM/DL (11.6-15.3); LYMPH % 15.4 % (9.0-44.0); LYMPHOCYTE # 2.1 TH/MM3 (1.0-4.8); MEAN CELL VOLUME 96.8 FL (80.0-100.0); MEAN CORPUSCULAR HEMOGLOBIN 33.7 PG (27.0-34.0); MEAN CORPUSCULAR HGB CONC 34.8 % (32.0-36.0); MEAN PLATELET VOLUME 9.3 FL (7.0-11.0); MONO % 13.1 % (0.0-8.0); MONOCYTE # 1.8 TH/MM3 (0-0.9); NEUT % 69.7 % (16.0-70.0); PLATELET COUNT 176 TH/MM3 (150-450); RED BLOOD COUNT 3.13 MIL/MM3 (4.00-5.30); RED CELL DISTRIBUTION WIDTH 14.8 % (11.6-17.2); WHITE BLOOD COUNT 13.7 TH/MM3 (4.0-11.0)
[2017-03-25 16:42] LABS: BANDS 17 % (0-6); LYMPHOCYTES 8 % (9-44); METAMYELOCYTES 4 % (0-1); MONOCYTES 9 % (0-8); NEUTROPHIL # MANUAL DIFF 11.1 TH/MM3 (1.8-7.7); POLYS (SEG NEUTROPHILS) 60 % (16-70)
[2017-03-25 16:43] LABS: OVALOCYTES 1+ (NORMAL); SPHEROCYTES 1+ (NORMAL)
[2017-03-25] MEDS: traZODone HCL 100 MG TAB PO SCH (21:15)
[2017-03-25] MEDS: QUEtiapine FUMARATE 300 MG TAB PO SCH (21:16)
[2017-03-26] VITALS: BP 118/65; PULSE 85; RESP 18; TEMP 98.4; O2SAT 94
[2017-03-26] MEDS: SODIUM CHLOR 0.9% 1000 ML INJ 1,000 ML IV SCH (03:38)
[2017-03-26 04:00] VITALS: BP 124/67; PULSE 88; RESP 18; TEMP 98.4; O2SAT 93
[2017-03-26 08:00] VITALS: BP 114/66; PULSE 85; RESP 18; TEMP 98.6; O2SAT 91
[2017-03-26] MEDS: SODIUM CHLORIDE 0.9% FLUSH 10 ML FLUSH IV FLUSH SCH (08:20)
[2017-03-26] MEDS: DOCUSATE SODIUM 50 MG/SENNA 8.6 MG TAB PO SCH (08:23)
[2017-03-26] MEDS: DIVALPROEX SODIUM DELAYED RELEASE 250 MG TAB PO SCH (08:23)
[2017-03-26] MEDS ORDERED: BACT800T5 PO (09:19)
--- NOTE | 2017-03-26 09:22 | HHI.DCPOC ---
Discharge Care Plan Diagnosis: (1) UTI (urinary tract infection) (2) Severe sepsis (3) Schizophrenia Goals to Promote Your Health * To prevent worsening of your condition and complications * To maintain your health at the optimal level Directions to Meet Your Goals Take your medications as prescribed Follow your dietary instruction Follow activity as directed Keep your appointments as scheduled Take your immunizations and boosters as scheduled If your symptoms worsen call your PCP, if no PCP go to Urgent Care Center or Emergency Room Smoking is Dangerous to Your Health. Avoid second hand smoke Call the 24-hour hour crisis hotline for domestic abuse at Beau Schaefer MD Mar 26, 2017 09:22
--- NOTE | 2017-03-26 09:26 | HHI.FF ---
Face to Face Verification Diagnosis: (1) Schizophrenia (2) Severe sepsis (3) UTI (urinary tract infection) Physical Therapy Order: Evaluate and Treat Home Health Nursing Order: Nursing assessment with vital signs I have seen patient Eri Vega on 03/26/17. My clinical findings support the need for the requested home health care services because: Limited ability to care for self I certify that my clinical findings support that this patient is homebound because: Unsteady gait/balance Beau Schaefer MD Mar 26, 2017 09:26
--- NOTE | 2017-03-26 09:29 | HHI.DS ---
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 Apparently she is constant falling and not able to stand up on her own today. Patient has no complaints, denies any injuries. However, it is unclear whether she is a reliable historian. Patient is in bed appears sleepy , however she was noted agitated earlier. When asked questions patient responds with no to all questions. History obtained from records, child care associate, staff, ED physician. Will attempt to obtain records. CBC/BMP: 03/25/17 1513 03/23/17 0822 Significant Findings Laboratory Tests Test 03/25/17 15:13 White Blood Count 13.7 TH/MM3 (4.0-11.0) Red Blood Count 3.13 MIL/MM3 (4.00-5.30) Hemoglobin 10.5 GM/DL (11.6-15.3) Hematocrit 30.3 % (35.0-46.0) Monocytes (%) (Auto) 13.1 % (0.0-8.0) Neutrophils # (Auto) 9.6 TH/MM3 (1.8-7.7) Monocytes # (Auto) 1.8 TH/MM3 (0-0.9) Band Neutrophils % 17 % (0-6) Lymphocytes % 8 % (9-44) Monocytes % 9 % (0-8) Neutrophils # (Manual) 11.1 TH/MM3 (1.8-7.7) Metamyelocytes 4 % (0-1) Spherocytes 1+ (NORMAL) Ovalocytes 1+ (NORMAL) Imaging Last Impressions Head CT 03/21/17 1028 Signed Impressions: Service Date/Time: March 11:10 - CONCLUSION: Unremarkable study. Osei Silverman MD PE at Discharge General: No acute distress. In soft wrist restraints. Heart: Regular rate and rhythm. No murmur. Lungs: Clear to auscultation bilaterally. No wheezes, rales, or rhonchi. Breathing is nonlabored. Abdomen: Soft, nontender, nondistended. Extremities: No lower extremity edema. Psych: Alert, confused. Pt update on day of discharge The patient states that she feels better today. She denies pain. Per nursing, she is more alert today. No events reported overnight. Hospital Course The patient was admitted for management of severe sepsis secondary to UTI. She was started on IV antibiotics. Urine culture grew Escherichia coli. Blood cultures were negative. Patient improved clinically throughout the hospitalization. She was evaluated by psychiatry and her medications were adjusted. She was found by physical therapy and home health was recommended. Pt Condition on Discharge: Stable Discharge Disposition: Disch w/ Home Health Serv Discharge Time: > 30 minutes Discharge Instructions DIET: Follow Instructions for: As Tolerated, No Restrictions Activities you can perform: Regular-No Restrictions Follow up Referrals: PCP Follow-up - 1 Week Psychiatry Adult - 2 Weeks New Medications: Sulfamethoxazole-Trimethoprim (Bactrim DS) 800-160 Mg Tab 1 TAB PO BID for Infection, #6 TAB 0 Refills Continued Medications: Divalproex DR (Divalproex DR) 250 Mg Tabdr 250 MG PO BID for Control Seizures, #60 TAB 0 Refills Quetiapine (Seroquel) 300 Mg Tab 600 MG PO HS, #30 TAB 0 Refills Trazodone (Trazodone) 100 Mg Tablet 100 MG PO HS for Control Depression, #30 TAB 0 Refills Discontinued Medications: Naproxen (Naproxen) 500 Mg Tab 500 MG PO BID, #60 TAB 0 Refills Risperidone (Risperdal) 4 Mg Tab 4 MG PO DAILY, #30 TAB 0 Refills Temazepam (Temazepam) 30 Mg Cap 30 MG PO HS PRN for INSOMNIA, #30 CAP 0 Refills Beau Schaefer MD Mar 26, 2017 09:29
[2017-03-26] MEDS ORDERED: SULFAMETHOXAZOLE-TRIMETHOPRIM DS 800-160 MG TAB PO SCH (10:00)
--- NOTE | 2017-03-26 10:23 | HHI.FF ---
Face to Face Verification Diagnosis: (1) UTI (urinary tract infection) (2) Schizophrenia (3) Severe sepsis Home Health Nursing Order: Nursing assessment with vital signs I have seen patient Eri Vega on 03/26/17. My clinical findings support the need for the requested home health care services because: Limited ability to care for self I certify that my clinical findings support that this patient is homebound because: Unsafe to leave home unassisted Beau Schaefer MD Mar 26, 2017 10:23
[2017-03-26 12:00] VITALS: BP 110/56; PULSE 85; RESP 18; TEMP 98.4; O2SAT 93
--- NOTE | 2017-03-26 13:26 | HHI.PYPN ---
Subjective Remarks Patient was seen today for psychiatric reevaluation. Case was discussed with nursing charge and primary attending. Patient has been out of restraints since yesterday. On evaluation she is calm, superficially cooperative, communication limited due to level of chronic cognitive impairment. However, the patient reports good mood, she says that she feels fine, reports good appetite, good sleep, she is a very good spirits, denies suicidal or homicidal ideation, she denies visual and auditory hallucinations at this moment. Patient says that she is at [place], March 2017. Review of Systems Except as stated in HPI: all other systems reviewed are Neg Mental Status Examination Appearance: Disheveled Orientation: Person, Place Motor Activity: Abnormal gait Speech: Rapid, Incoherent Fund of Knowledge: Inadequate Attention and Concentration: Easily Distracted Memory: Impaired Mood: Oppositional Affect: Irritable Thought Process & Associations: Loose associations, Disorganized Thought Content: Bizarre thinking Hallucination Type: Auditory Delusion Type: None Suicidal Ideation: No Suicidal Plan: No Suicidal Intention: No Homicidal Ideation: No Homicidal Plan: No Homicidal Intention: No Insight: Poor Judgment: Poor Results Labs Test 03/25/17 15:13 White Blood Count 13.7 TH/MM3 Red Blood Count 3.13 MIL/MM3 Hemoglobin 10.5 GM/DL Hematocrit 30.3 % Mean Corpuscular Volume 96.8 FL Mean Corpuscular Hemoglobin 33.7 PG Mean Corpuscular Hemoglobin Concent 34.8 % Red Cell Distribution Width 14.8 % Platelet Count 176 TH/MM3 Mean Platelet Volume 9.3 FL Neutrophils (%) (Auto) 69.7 % Lymphocytes (%) (Auto) 15.4 % Monocytes (%) (Auto) 13.1 % Eosinophils (%) (Auto) 1.2 % Basophils (%) (Auto) 0.6 % Neutrophils # (Auto) 9.6 TH/MM3 Lymphocytes # (Auto) 2.1 TH/MM3 Monocytes # (Auto) 1.8 TH/MM3 Eosinophils # (Auto) 0.2 TH/MM3 Basophils # (Auto) 0.1 TH/MM3 CBC Comment AUTO DIFF Differential Total Cells Counted 100 Neutrophils % (Manual) 60 % Band Neutrophils % 17 % Lymphocytes % 8 % Monocytes % 9 % Eosinophils % 2 % Neutrophils # (Manual) 11.1 TH/MM3 Metamyelocytes 4 % Differential Comment FINAL DIFF MANUAL Platelet Estimate NORMAL Platelet Morphology Comment NORMAL Spherocytes 1+ Ovalocytes 1+ Date/Time Source Procedure Growth Status 03/21/17 12:56 Blood Peripheral Aerobic Blood Culture - Final NO GROWTH IN 5 DAYS Complete 03/21/17 12:56 Blood Peripheral Anaerobic Blood Culture - Final NO GROWTH IN 5 DAYS Complete 03/21/17 11:00 Urine Catheterized Urine Urine Culture - Final Escherichia Coli Complete Vitals/IOs Vital Signs Date Time Temp Pulse Resp B/P (MAP) Pulse Ox O2 Delivery O2 Flow Rate FiO2 03/26/17 12:00 98.4 85 18 110/56 (74) 93 03/25/17 19:25 21 Assessment & Plan Problem List: (1) Schizophrenia ICD Codes: F20.9 - Schizophrenia Status: Acute Assessment & Plan: Patient is psychiatrically stable to be discharged back to her residential facility. Continue current psychotropic regimen. Assessment & Plan Estimated LOS: days Justification for Cont. Inpt. No indication of psychiatric admission. Patient will continue psychiatric follow-up as an outpatient. Mane Morfin MD Mar 26, 2017 13:26
== END 2017-03-26 12:33 | disposition home or self-care (01) | DRG 872 ==
LOC: NEPE 09:45 → NEDA 13:23 → N05A 15:43
PROVIDERS: ADMIT Family Medicine; ATTEND Family Medicine
DX: A41.9 Sepsis, unspecified organism (principal); N17.9 Acute kidney failure, unspecified; D69.6 Thrombocytopenia, unspecified; Z78.1 Physical restraint status; R65.20 Severe sepsis without septic shock; N39.0 Urinary tract infection, site not specified; B96.20 Unspecified Escherichia coli [E. coli] as the cause of diseases classified elsewhere; F20.9 Schizophrenia, unspecified; R00.0 Tachycardia, unspecified; R29.6 Repeated falls; F31.9 Bipolar disorder, unspecified; R42 Dizziness and giddiness; Z72.0 Tobacco use
CPT/HCPCS: 70450; 76937; 80048; 80053; 80164; 80307; 81001; 82140; 83605; 84443; 84484; 84703; 85007; 85027; 87040; 87077; 87086; 87186; 93005; 96365; J0696; J1650; J2543; J7030

== ENCOUNTER 2017-08-22 12:26 | Observation (INO) | payer OTHER ==
[~2017-08-22] VITALS: Ht 167.6 cm; Wt 56.0 kg
[2017-08-22] VITALS (7 sets, daily range): BP systolic 104–136; BP diastolic 59–80; PULSE 78–97; RESP 13–22; TEMP 98–98.6; O2SAT 94–98
[~2017-08-22 12:26] MED LIST: BACT800T5 PO; DIVA250T PO; SERO300T PO; TRAZ100T10 PO
[2017-08-22 13:20] LABS: AUTOMATED NEUTROPHIL # 3.8 TH/MM3 (1.8-7.7); BASOPHIL % 0.2 % (0.0-2.0); EOSINOPHIL % 0.2 % (0.0-4.0); HEMATOCRIT 24.3 % (35.0-46.0); HEMOGLOBIN 8.2 GM/DL (11.6-15.3); LYMPH % 21.9 % (9.0-44.0); LYMPHOCYTE # 1.2 TH/MM3 (1.0-4.8); MEAN CELL VOLUME 96.4 FL (80.0-100.0); MEAN CORPUSCULAR HEMOGLOBIN 32.4 PG (27.0-34.0); MEAN CORPUSCULAR HGB CONC 33.6 % (32.0-36.0); MEAN PLATELET VOLUME 7.2 FL (7.0-11.0); MONO % 8.4 % (0.0-8.0); MONOCYTE # 0.5 TH/MM3 (0-0.9); NEUT % 69.3 % (16.0-70.0); PLATELET COUNT 174 TH/MM3 (150-450); RED BLOOD COUNT 2.52 MIL/MM3 (4.00-5.30); RED CELL DISTRIBUTION WIDTH 16.9 % (11.6-17.2); WHITE BLOOD COUNT 5.5 TH/MM3 (4.0-11.0)
[2017-08-22] MEDS ORDERED: SODIUM CHLOR 0.9% 1000 ML INJ 1,000 ML IV ONE ×2 (13:34→14:00)
[2017-08-22] MEDS ORDERED: SODIUM CHLORIDE 0.9% FLUSH 10 ML FLUSH IVF PRN (13:45)
--- NOTE | 2017-08-22 13:50 | PD ---
HPI Chief Complaint: Fall Time Seen by Provider: 13:34 Travel History International Travel<30 days: No Contact w/Intl Traveler<30days: No Traveled to known affect area: No History of Present Illness HPI 42-year-old female presents emergency department being dropped off by caregivers with reports of recurrent falls over the past several days. Patient has not been seen here since March with similar presentation with history of sepsis. Patient also has long history of schizophrenia in the past. Caregivers dropped the patient off and leave, so history is limited. Supposedly the patient fell 6 times coming in from the car to the emergency department. Patient has complaints of headache, and painful bruising to the head which appears consistent with recent history. She has no complaints of nausea, vomiting, or abdominal pain. She is moving all extremities normally. She is a very poor historian. She has no known drug allergies. [facility] Past Medical History Medical History: Unable to Obtain Cancer: No Cardiovascular Problems: Yes (HYPERLIPIDEMIA) High Cholesterol: Yes Diabetes: No Diminished Hearing: No Endocrine: No Genitourinary: No Hypertension: Yes Immune Disorder: No Musculoskeletal: Yes (CHRONIC LOWER BACK PAIN) Neurologic: Yes Psychiatric: Yes (SCHIZOPHRENIC, bipolar ) Respiratory: No Immunizations Current: Yes Schizophrenia: Yes Social History Alcohol Use: No Tobacco Use: Yes (8 cig a day ) Substance Use: No Allergies-Medications (Allergen,Severity, Reaction): Coded Allergies: No Known Allergies (Verified Adverse Reaction, Unknown, 08/22/17) Reported Meds & Prescriptions Reported Meds & Active Scripts Active Reported Ciprofloxacin (Ciprofloxacin HCl) 500 Mg Tab 500 Mg PO BID Risperdal (Risperidone) 4 Mg Tab 4 Mg PO DAILY Temazepam 30 Mg Cap 30 Mg PO HS PRN Divalproex ER (Divalproex Sodium) 250 Mg Odalis 1,000 Mg PO BID Naproxen 500 Mg Tab 500 Mg PO BID Trazodone (Trazodone HCl) 100 Mg Tablet 200 Mg PO HS Seroquel (Quetiapine Fumarate) 300 Mg Tab 600 Mg PO HS Review of Systems ROS Limitations: Clinical Condition, Altered Mental Status, Poor Historian Except as stated in HPI: all other systems reviewed are Neg General / Constitutional: No: Fever Eyes: No: Visual changes HENT: Positive: Headaches, No: Neck Stiffness, Neck Pain Cardiovascular: No: Chest Pain or Discomfort Respiratory: No: Shortness of Breath Gastrointestinal: No: Abdominal Pain Genitourinary: No: Dysuria Musculoskeletal: No: Pain Skin: No Rash Neurologic: No: Weakness Psychiatric: No: Depression Endocrine: No: Polydipsia Hematologic/Lymphatic: No: Easy Bruising Physical Exam Exam Limitations: Clinical Condition, Altered Mental Status, Poor Historian Narrative GENERAL: Patient appears confused. SKIN: Warm and dry. Patient has 2 fresh abrasions to the nose and anterior forehead. She has an old abrasion to the left elbow, as well as some small ecchymotic areas. HEAD: Normocephalic. Patient has tenderness to the anterior forehead at areas of contusion and abrasion. EYES: Pupils equal and round. No scleral icterus. No injection or drainage. Ocular motions are equal bilaterally ENT: No nasal bleeding or discharge. Mucous membranes pink and moist. No obvious dental injury. Patient is edentulous. Pharynx is clear. Airways patent. NECK: Trachea midline. No bony tenderness or step-off. Range of motion is full and supple CARDIOVASCULAR: Regular rate and rhythm. No murmurs gallops or rubs. RESPIRATORY: No accessory muscle use. Clear to auscultation. Breath sounds equal bilaterally. GASTROINTESTINAL: Abdomen soft, non-tender, nondistended. Hepatic and splenic margins not palpable. MUSCULOSKELETAL: Extremities without clubbing, cyanosis, or edema. No obvious deformities. NEUROLOGICAL: Awake and alert. No obvious cranial nerve deficits. Motor grossly within normal limits. Five out of 5 muscle strength in the arms and legs. Normal speech. PSYCHIATRIC: Confused with question psychosis. Data Data Last Documented VS Vital Signs Date Time Temp Pulse Resp B/P (MAP) Pulse Ox O2 Delivery O2 Flow Rate FiO2 08/22/17 14:09 92 16 125/74 (91) 95 Room Air 08/22/17 12:38 98.0 Orders Orders Complete Blood Count With Diff (08/22/17 13:02) Comprehensive Metabolic Panel (08/22/17 13:02) Urinalysis - C+S If Indicated (08/22/17 13:02) Lipase (08/22/17 13:02) Lactic Acid (08/22/17 13:02) Electrocardiogram (08/22/17 13:34) Magnesium (Mg) (08/22/17 13:34) Ckmb (Isoenzyme) Profile (08/22/17 13:34) Troponin I (08/22/17 13:34) Act Partial Throm Time (Ptt) (08/22/17 13:34) Prothrombin Time / Inr (Pt) (08/22/17 13:34) Chest, Single Ap (08/22/17 13:34) Ecg Monitoring (08/22/17 13:34) Iv Access Insert/Monitor (08/22/17 13:34) Oximetry (08/22/17 13:34) Sodium Chloride 0.9% Flush (Ns Flush) (08/22/17 13:45) Sodium Chlor 0.9% 1000 Ml Inj (Ns 1000 M (08/22/17 13:34) Orthostatic Vital Signs (08/22/17 13:34) Ct Brain W/O Iv Contrast(Rout) (08/22/17 13:53) Sodium Chlor 0.9% 1000 Ml Inj (Ns 1000 M (08/22/17 14:00) Urine Culture (08/22/17 13:30) Ceftriaxone Inj (Rocephin Inj) (08/22/17 15:00) Labs Laboratory Tests Test 08/22/17 13:06 08/22/17 13:30 08/22/17 14:15 White Blood Count 5.5 TH/MM3 Red Blood Count 2.52 MIL/MM3 Hemoglobin 8.2 GM/DL Hematocrit 24.3 % Mean Corpuscular Volume 96.4 FL Mean Corpuscular Hemoglobin 32.4 PG Mean Corpuscular Hemoglobin Concent 33.6 % Red Cell Distribution Width 16.9 % Platelet Count 174 TH/MM3 Mean Platelet Volume 7.2 FL Neutrophils (%) (Auto) 69.3 % Lymphocytes (%) (Auto) 21.9 % Monocytes (%) (Auto) 8.4 % Eosinophils (%) (Auto) 0.2 % Basophils (%) (Auto) 0.2 % Neutrophils # (Auto) 3.8 TH/MM3 Lymphocytes # (Auto) 1.2 TH/MM3 Monocytes # (Auto) 0.5 TH/MM3 Eosinophils # (Auto) 0.0 TH/MM3 Basophils # (Auto) 0.0 TH/MM3 CBC Comment DIFF FINAL Differential Comment Blood Urea Nitrogen 28 MG/DL Creatinine 1.79 MG/DL Random Glucose 90 MG/DL Total Protein 7.2 GM/DL Albumin 1.9 GM/DL Calcium Level 9.4 MG/DL Alkaline Phosphatase 120 U/L Aspartate Amino Transf (AST/SGOT) 9 U/L Alanine Aminotransferase (ALT/SGPT) 11 U/L Total Bilirubin 0.6 MG/DL Sodium Level 137 MEQ/L Potassium Level 4.6 MEQ/L Chloride Level 105 MEQ/L Carbon Dioxide Level 24.1 MEQ/L Anion Gap 8 MEQ/L Estimat Glomerular Filtration Rate 31 ML/MIN Lactic Acid Level 0.8 mmol/L Lipase 41 U/L Urine Color YELLOW Urine Turbidity CLOUDY Urine pH 6.0 Urine Specific [place] 1.023 Urine Protein 30 mg/dL Urine Glucose (UA) NEG mg/dL Urine Ketones TRACE mg/dL Urine Occult Blood MOD Urine Nitrite POS Urine Bilirubin NEG Urine Urobilinogen 2.0 MG/DL Urine Leukocyte Esterase LARGE Urine RBC 14 /hpf Urine WBC /hpf Urine WBC Clumps MANY Urine Squamous Epithelial Cells 11 /hpf Urine Bacteria MOD /hpf Urine Mucus FEW /lpf Microscopic Urinalysis Comment CULTURE INDICATED Prothrombin Time 12.0 SEC Prothromb Time International Ratio 1.2 RATIO Activated Partial Thromboplast Time 30.3 SEC Magnesium Level 2.7 MG/DL Total Creatine Kinase 26 U/L Troponin I LESS THAN 0.02 NG/ML [facility] Medical Decision Making Medical Screen Exam Complete: Yes Emergency Medical Condition: Yes Medical Record Reviewed: Yes Differential Diagnosis Confusion. Head injury. Intracranial bleed. Syncope. Dehydration. Electrolyte imbalance. Psychosis. Head injury. Narrative Course Patient is confused but appears medically stable. Orthostatics are ordered. Labs ordered including CBC, CMP, lactic acid, urinalysis, cardiac panel, and magnesium. Chest x-ray is ordered. Chest x-ray is unremarkable. EKG is ordered. EKG shows a normal sinus rhythm at 79 bpm without significant changes noted. Head CT ordered. Patient is given 1000 mL of normal saline bolus. CBC shows no significant leukocytosis, however the patient's hemoglobin is 8.2 which is the lowest on record here in the last 6 months, and hematocrit is 24.3. Platelets are normal. Chemistries show a BUN of 28, and a creatinine of 1.79, which is elevated for the patient showing probable acute kidney injury. Lactic acid is 0.8. Urinalysis shows obvious urinary tract infection. It is cloudy, 30 protein, trace ketones, moderate occult blood, positive for nitrates, large leukocyte esterase, with many white blood cell clumps, moderate bacteria. Urine is cultured. Patient is given Rocephin 1000 mg IV. Patient is not orthostatic however patient is unable to ambulate without assistance due to her legs giving out. CT shows no acute process. Hospitalist is called for admission. Diagnosis Primary Impression: Acute kidney injury Additional Impressions: Urinary tract infection Qualified Codes: N30.00 - Acute cystitis without hematuria Bilateral leg weakness Anemia Qualified Codes: D64.9 - Anemia, unspecified Altered mental status, unspecified Qualified Codes: R41.0 - Disorientation, unspecified Admitting Information Admitting Physician Requests: Observation Condition: Stable Nigel Gonzáles Aug 22, 2017 13:50
[2017-08-22 13:53] LABS: ALBUMIN 1.9 GM/DL (3.4-5.0); ALT (GPT) 11 U/L (10-53); AST (GOT) 9 U/L (15-37); BICARBONATE 24.1 MEQ/L (21.0-32.0); BLOOD UREA NITROGEN 28 MG/DL (7-18); CALCIUM 9.4 MG/DL (8.5-10.1); CHLORIDE 105 MEQ/L (98-107); CREATININE 1.79 MG/DL (0.50-1.00); GLOMERULAR FILTRATION RATE 31 ML/MIN (>89); GLUCOSE,RANDOM 90 MG/DL (74-106); SODIUM (NA) 137 MEQ/L (136-145)
[2017-08-22 13:54] LABS: ALKALINE PHOSPHATASE 120 U/L (45-117); TOTAL BILIRUBIN ADULT 0.6 MG/DL (0.2-1.0); TOTAL PROTEIN 7.2 GM/DL (6.4-8.2)
[2017-08-22 13:55] LABS: BACTERIA, URINE MOD /hpf; BILIRUBIN, URINE NEG (NEG); BLOOD, URINE MOD (NEG); GLUCOSE,URINE NEG (NEG); KETONE, URINE TRACE mg/dL (NEG); MUCUS URINE FEW /lpf (OCC); NITRITE,URINE POS (NEG); SQUAMOUS EPITHELIAL CELL URINE 11 /hpf (0-5); URINE COLOR YELLOW (YELLW/STRAW); URINE LEUKOCYTE ESTERASE LARGE (NEG); WHITE BLOOD CELL CLUMPS MANY
[2017-08-22] MEDS ORDERED: RISP4TAB41 PO (14:24)
[2017-08-22] MEDS ORDERED: TEMA30CA PO (14:24)
[2017-08-22] MEDS ORDERED: NAPR500T2 PO (14:24)
[2017-08-22] MEDS ORDERED: CIPR500T2 PO (14:24)
[2017-08-22] MEDS ORDERED: DIVA250T3 PO (14:24)
--- NOTE | 2017-08-22 14:34 | RADRPT ---
EXAM DATE: 08/22/2017 2:24 PM EDT AGE/SEX: 42 years / Female INDICATIONS: Palpitations, per nurse. Pt in a senior living. CLINICAL DATA: This is the patient's initial encounter. Patient reports that signs and symptoms have been present for 1 day and indicates a pain score of Nonresponsive. MEDICAL/SURGICAL HISTORY: Non-responsive. Non-responsive. COMPARISON: No prior exams available for comparison. FINDINGS: A single AP view of the chest demonstrates the lungs to be symmetrically aerated without evidence of mass, infiltrate or effusion. The cardiomediastinal contours are unremarkable. Osseous structures a re intact. CONCLUSION: Negative examination. Electronically signed by: Henry Foy MD 08/22/2017 2:32 PM EDT
[2017-08-22] MEDS ORDERED: cefTRIAXone INJ 1,000 MG in SODIUM CHLORIDE 0.9% INJ 100 ML IV ONE (15:00)
[2017-08-22 15:09] LABS: INTERNATIONAL NORMALIZED RATIO 1.2 RATIO
[2017-08-22 15:22] LABS: MAGNESIUM 2.7 MG/DL (1.5-2.5)
[2017-08-22 15:24] LABS: TROPONIN I LESS THAN 0.02 NG/ML (0.02-0.05)
--- NOTE | 2017-08-22 15:29 | RADRPT ---
EXAM DATE: 08/22/2017 3:18 PM EDT AGE/SEX: 42 years / Female INDICATIONS: Multiple falls. CLINICAL DATA: This is the patient's initial encounter. Patient reports that signs and symptoms have been present for 1 day and indicates a pain score of 3/10. MEDICAL/SURGICAL HISTORY: Hepatitis C. Hyperlipidemia. None. RADIATION DOSE: 56.35 CTDI (mGy) COMPARISON: No prior exams available for comparison. TECHNIQUE: CT of the head without contrast. Using automated exposure control and adjustment of the mA and/or kV according to patient size, radiation dose was kept as low as reasonably achievable to ob tain optimal diagnostic quality images. FINDINGS: There is no evidence for intracranial hemorrhage, mass effect, mass lesions, edema, or extra-axial fl uid collections. The visualized bony structures appear intact. The ventricles are normal size for t he patient's age. There are no signs of acute infarction for technique. CONCLUSION: Unremarkable study. Electronically signed by: Conner Silverman MD 08/22/2017 3:28 PM EDT
--- NOTE | 2017-08-22 17:30 | HHI.HP ---
HPI Service [facility] Hospitalists Primary Care Physician Unknown Admission Diagnosis ALTERED MENTAL STATUS/UTI/CHAIM Diagnoses: Chief Complaint: Frequent falls Travel History International Travel<30 Days: No Contact w/Intl Traveler <30 Da: No Traveled to Known Affected Are: No History of Present Illness This is a 42-year-old female with past medical history significant for bipolar schizophrenia, hyperlipidemia who was brought in to [facility] dropped off by caregivers with reports of recurrent falls over the past several days. The patient due to her mental condition is a very poor historian so most history is obtained from previous admissions and ED documentation. As per ED documentation the patient fell 6 times coming in from the car to the emergency department. Patient had complained of headache to the emergency department physician and also has some excoriations on the face. The patient however denies any fevers, chills. She is able to tell me that she felt really sick and nauseous for the past few days. Denied having vomited. The patient denies abdominal pain, diarrhea. Past Family Social History Past Medical History Schizophrenia Bipolar disorder Past Surgical History Prior surgeries as per medical records. Reported Medications Reported Meds & Active Scripts Active Reported Ciprofloxacin (Ciprofloxacin HCl) 500 Mg Tab 500 Mg PO BID Risperdal (Risperidone) 4 Mg Tab 4 Mg PO DAILY Temazepam 30 Mg Cap 30 Mg PO HS PRN Divalproex ER (Divalproex Sodium) 250 Mg Odalis 1,000 Mg PO BID Naproxen 500 Mg Tab 500 Mg PO BID Trazodone (Trazodone HCl) 100 Mg Tablet 200 Mg PO HS Seroquel (Quetiapine Fumarate) 300 Mg Tab 600 Mg PO HS Allergies: Coded Allergies: No Known Allergies (Verified Adverse Reaction, Unknown, 08/22/17) Active Ordered Medications Current Medications Medications (Trade) Dose Ordered Sig/Deonte Route Start Time Stop Time Status Last Admin (NS Flush) 2 ml UNSCH PRN IVF 08/22/17 13:45 08/22/17 14:32 Family History Denies history of CAD hypertension. Social History Tobacco use: Per records 8 cig a day. No illicit drug use or EtOH use. Physical Exam Vital Signs Vital Signs Date Time Temp Pulse Resp B/P (MAP) Pulse Ox O2 Delivery O2 Flow Rate FiO2 08/22/17 14:09 92 16 125/74 (91) 95 Room Air 08/22/17 14:00 86 14 136/60 (85) 84 13 125/60 (81) 94 16 125/74 (91) 08/22/17 13:59 94 Room Air 08/22/17 12:38 98.0 97 16 104/59 (74) 98 Physical Exam GENERAL: This is a well-nourished, well-developed patient, in no apparent distress. SKIN: No rashes. Cool and dry. Patient has 2 fresh abrasions to the nose and anterior forehead. She has an old abrasion to the left elbow, as well as some small ecchymotic areas. HEAD: Atraumatic. Normocephalic. No temporal or scalp tenderness. EYES: Pupils equal round and reactive. Extraocular motions intact. No scleral icterus. No injection or drainage. ENT: Nose without bleeding, purulent drainage or septal hematoma. Throat without erythema, tonsillar hypertrophy or exudate. Uvula midline. Airway patent. NECK: Trachea midline. No JVD or lymphadenopathy. Supple, nontender, no meningeal signs. CARDIOVASCULAR: Regular rate and rhythm without murmurs, gallops, or rubs. RESPIRATORY: Clear to auscultation. Breath sounds equal bilaterally. No wheezes , rales, or rhonchi. GASTROINTESTINAL: Abdomen soft, non-tender, nondistended. No hepato-splenomegaly , or palpable masses. No guarding. MUSCULOSKELETAL: Extremities without clubbing, cyanosis, or edema. No joint tenderness, effusion, or edema noted. No calf tenderness. Negative Homans sign bilaterally. NEUROLOGICAL: Awake and alert. Cranial nerves II through XII intact. Motor and sensory grossly within normal limits. Five out of 5 muscle strength in all muscle groups. Normal speech. Laboratory Laboratory Tests Test 08/22/17 13:06 08/22/17 13:30 08/22/17 14:15 White Blood Count 5.5 Red Blood Count 2.52 Hemoglobin 8.2 Hematocrit 24.3 Mean Corpuscular Volume 96.4 Mean Corpuscular Hemoglobin 32.4 Mean Corpuscular Hemoglobin Concent 33.6 Red Cell Distribution Width 16.9 Platelet Count 174 Mean Platelet Volume 7.2 Neutrophils (%) (Auto) 69.3 Lymphocytes (%) (Auto) 21.9 Monocytes (%) (Auto) 8.4 Eosinophils (%) (Auto) 0.2 Basophils (%) (Auto) 0.2 Neutrophils # (Auto) 3.8 Lymphocytes # (Auto) 1.2 Monocytes # (Auto) 0.5 Eosinophils # (Auto) 0.0 Basophils # (Auto) 0.0 CBC Comment DIFF FINAL Differential Comment Blood Urea Nitrogen 28 Creatinine 1.79 Random Glucose 90 Total Protein 7.2 Albumin 1.9 Calcium Level 9.4 Alkaline Phosphatase 120 Aspartate Amino Transf (AST/SGOT) 9 Alanine Aminotransferase (ALT/SGPT) 11 Total Bilirubin 0.6 Sodium Level 137 Potassium Level 4.6 Chloride Level 105 Carbon Dioxide Level 24.1 Anion Gap 8 Estimat Glomerular Filtration Rate 31 Lactic Acid Level 0.8 Lipase 41 Urine Color YELLOW Urine Turbidity CLOUDY Urine pH 6.0 Urine Specific [place] 1.023 Urine Protein 30 Urine Glucose (UA) NEG Urine Ketones TRACE Urine Occult Blood MOD Urine Nitrite POS Urine Bilirubin NEG Urine Urobilinogen 2.0 Urine Leukocyte Esterase LARGE Urine RBC 14 Urine WBC Urine WBC Clumps MANY Urine Squamous Epithelial Cells 11 Urine Bacteria MOD Urine Mucus FEW Microscopic Urinalysis Comment CULTURE INDICATED Prothrombin Time 12.0 Prothromb Time International Ratio 1.2 Activated Partial Thromboplast Time 30.3 Magnesium Level 2.7 Total Creatine Kinase 26 Troponin I LESS THAN 0.02 Date/Time Source Procedure Growth Status 08/22/17 13:30 Urine Other Urine Culture Pending Received Result Diagram: 08/22/17 1306 08/22/17 1306 Imaging Last Impressions Head CT 08/22/17 1353 Signed Impressions: CONCLUSION: Unremarkable study. Chest X-Ray 08/22/17 1334 Signed Impressions: CONCLUSION: Negative examination. Caprini VTE Risk Assessment Caprini VTE Risk Assessment: No/Low Risk (score <= 1) Caprini Risk Assessment Model Point Value = 1 Point Value = 2 Point Value = 3 Point Value = 5 Age 41-60 Minor surgery BMI > 25 kg/m2 Swollen legs Varicose veins or History of unexplained or recurrent spontaneous Oral contraceptives or hormone replacement Sepsis (< 1 month) Serious lung disease, including pneumonia (< 1 month) Abnormal pulmonary function Acute myocardial infarction Congestive heart failure (< 1 month) History of inflammatory bowel disease Medical patient at bed rest Age 61-74 Arthroscopic surgery Major open surgery (> 45 min) Laparoscopic surgery (> 45 min) Malignancy Confined to bed (> 72 hours) Immobilizing plaster cast Central venous access Age >= 75 History of VTE Family history of VTE Factor V Leiden Prothrombin [id number] Lupus anticoagulant Anticardiolipin antibodies Elevated serum homocysteine Heparin-induced thrombocytopenia Other congenital or acquired thrombophilia Stroke (< 1 month) Elective arthroplasty Hip, pelvis, or leg fracture Acute spinal cord injury (< 1 month) Prophylaxis Regimen Total Risk Factor Score Risk Level Prophylaxis Regimen 0-1 Low Early ambulation 2 Moderate Order ONE of the following: *Sequential Compression Device (SCD) *Heparin 5000 units SQ BID 3-4 Higher Order ONE of the following medications: *Heparin 5000 units SQ TID *Enoxaparin/Lovenox 40 mg SQ daily (WT < 150 kg, CrCl > 30 mL/min) *Enoxaparin/Lovenox 30 mg SQ daily (WT < 150 kg, CrCl > 10-29 mL/min) *Enoxaparin/Lovenox 30 mg SQ BID (WT < 150 kg, CrCl > 30 mL/min) AND/OR *Sequential Compression Device (SCD) 5 or more Highest Order ONE of the following medications: *Heparin 5000 units SQ TID (Preferred with Epidurals) *Enoxaparin/Lovenox 40 mg SQ daily (WT < 150 kg, CrCl > 30 mL/min) *Enoxaparin/Lovenox 30 mg SQ daily (WT < 150 kg, CrCl > 10-29 mL/min) *Enoxaparin/Lovenox 30 mg SQ BID (WT < 150 kg, CrCl > 30 mL/min) AND *Sequential Compression Device (SCD) Assessment and Plan Problem List: (1) Acute kidney injury ICD Code: N17.9 - Acute kidney failure, unspecified Status: Acute (2) Schizophrenia ICD Code: F20.9 - Schizophrenia Status: Acute (3) Urinary tract infection ICD Code: N39.0 - Urinary tract infection, site not specified Status: Acute Assessment and Plan Place the patient on outpatient observation. Follow-up urine culture. IV Rocephin. PT consult. IV fluids Monitor BUN/creatinine, history I's and O's, avoid nephrotoxins. SCDs for DVT prophylaxis Fall precautions Code Status Full code Discussed Condition With ED physician Problem Qualifiers (1) Urinary tract infection: Qualified Codes: N30.00 - Acute cystitis without hematuria Teja Duarte MD Aug 22, 2017 17:30
[2017-08-22] MEDS ORDERED: NALOXONE HCL 0.4 MG/ML AMP IV PUSH PRN (18:30)
[2017-08-22] MEDS ORDERED: SODIUM CHLORIDE 0.9% FLUSH 10 ML FLUSH IV FLUSH PRN (18:30)
[2017-08-22] MEDS ORDERED: ACETAMINOPHEN 325 MG TAB PO PRN (18:30)
[2017-08-22] MEDS: SODIUM CHLOR 0.45% 1000 ML INJ 1,000 ML IV SCH (20:18)
[2017-08-22] MEDS: SODIUM CHLORIDE 0.9% FLUSH 10 ML FLUSH IV FLUSH SCH (20:18)
[2017-08-22 21:13] LABS: % SATURATION IRON PROFILE 13.3 % (20-50); IRON (FE) 25 MCG/DL (50-170); TOTAL IRON BINDING CAPACITY 188 MCG/DL (250-450)
[2017-08-22 21:15] LABS: FERRITIN 925 NG/ML (8-252)
[2017-08-23] VITALS (7 sets, daily range): BP systolic 100–119; BP diastolic 50–70; PULSE 79–90; RESP 16–20; TEMP 98–99.8; O2SAT 95–98
[2017-08-23 07:34] LABS: AUTOMATED NEUTROPHIL # 3.6 TH/MM3 (1.8-7.7); BASOPHIL % 0.2 % (0.0-2.0); EOSINOPHIL % 0.2 % (0.0-4.0); HEMOGLOBIN 7.5 GM/DL (11.6-15.3); LYMPH % 22.9 % (9.0-44.0); LYMPHOCYTE # 1.4 TH/MM3 (1.0-4.8); MEAN CELL VOLUME 96.7 FL (80.0-100.0); MEAN CORPUSCULAR HEMOGLOBIN 32.7 PG (27.0-34.0); MEAN CORPUSCULAR HGB CONC 33.8 % (32.0-36.0); MEAN PLATELET VOLUME 7.4 FL (7.0-11.0); MONO % 17.3 % (0.0-8.0); MONOCYTE # 1.1 TH/MM3 (0-0.9); NEUT % 59.4 % (16.0-70.0); PLATELET COUNT 148 TH/MM3 (150-450); RED BLOOD COUNT 2.28 MIL/MM3 (4.00-5.30); RED CELL DISTRIBUTION WIDTH 16.8 % (11.6-17.2); WHITE BLOOD COUNT 6.1 TH/MM3 (4.0-11.0)
[2017-08-23] MEDS: SODIUM CHLORIDE 0.9% FLUSH 10 ML FLUSH IV FLUSH SCH ×2 (08:00→19:59)
[2017-08-23 08:01] LABS: ALBUMIN 1.7 GM/DL (3.4-5.0); ALKALINE PHOSPHATASE 113 U/L (45-117); ALT (GPT) 10 U/L (10-53); AST (GOT) 14 U/L (15-37); BICARBONATE 21.5 MEQ/L (21.0-32.0); BLOOD UREA NITROGEN 15 MG/DL (7-18); CALCIUM 9.2 MG/DL (8.5-10.1); CHLORIDE 105 MEQ/L (98-107); CREATININE 1.17 MG/DL (0.50-1.00); GLOMERULAR FILTRATION RATE 50 ML/MIN (>89); GLUCOSE,RANDOM 78 MG/DL (74-106); SODIUM (NA) 137 MEQ/L (136-145); TOTAL BILIRUBIN ADULT 0.4 MG/DL (0.2-1.0); TOTAL PROTEIN 6.5 GM/DL (6.4-8.2)
[2017-08-23] MEDS: cefTRIAXone INJ 2,000 MG in SODIUM CHLORIDE 0.9% INJ 100 ML IV SCH (08:39)
[2017-08-23] MEDS: SODIUM CHLOR 0.45% 1000 ML INJ 1,000 ML IV SCH ×2 (08:40→18:06)
[2017-08-23] MEDS ORDERED: TEMAZEPAM 15 MG CAP PO PRN (08:45)
[2017-08-23] MEDS: risperiDONE 1 MG TAB PO SCH (09:18)
[2017-08-23] MEDS: DIVALPROEX SODIUM E.R. 500 MG TAB PO SCH ×2 (09:20→19:58)
[2017-08-23] MEDS: FERROUS SULFATE 325 MG (65 MG ELEMENTAL IRON) TAB PO SCH ×2 (13:20→18:05)
--- NOTE | 2017-08-23 13:44 | HHI.PR ---
Subjective Remarks Follow up UTI, CHAIM. Patient reports dyspnea, nausea. Per nursing, she has not had any vomiting. Objective Vitals Vital Signs Date Time Temp Pulse Resp B/P (MAP) Pulse Ox O2 Delivery O2 Flow Rate FiO2 08/23/17 12:05 98.2 80 20 105/60 (75) 96 08/23/17 08:00 98.0 80 18 100/50 (67) 96 08/23/17 04:45 98.5 81 17 102/50 (67) 95 08/23/17 00:00 98.3 79 18 110/61 (77) 96 08/22/17 20:07 98.6 78 16 105/62 (76) 97 108/65 (79) 117/70 (86) 08/22/17 19:07 08/22/17 17:57 97 22 123/80 (94) 97 Room Air 08/22/17 15:00 84 22 128/67 (87) 97 Room Air 08/22/17 14:09 92 16 125/74 (91) 95 Room Air 08/22/17 14:00 86 14 136/60 (85) 84 13 125/60 (81) 94 16 125/74 (91) 08/22/17 13:59 94 Room Air I/O 08/22/17 08/22/17 08/22/17 08/23/17 08/23/17 08/23/17 07:00 15:00 23:00 07:00 15:00 23:00 Intake Total 1100 ml 1100 ml Balance 1100 ml 1100 ml Intake IV Total 1100 ml 1100 ml # Voids 1 3 1 # Bowel Movements 1 Result Diagram: 08/23/17 0645 08/23/17 0645 Imaging Last Impressions Head CT 08/22/17 1353 Signed Impressions: CONCLUSION: Unremarkable study. Chest X-Ray 08/22/17 1334 Signed Impressions: CONCLUSION: Negative examination. Objective Remarks General: No acute distress. HEENT: Abrasions on the nose and forehead. Heart: Regular rate and rhythm. No murmur. Lungs: Clear to auscultation bilaterally. No wheezes, rales, or rhonchi. Breathing is nonlabored. Abdomen: Soft, nontender, nondistended. Extremities: No lower extremity edema. Psych: Alert, confused. Neuro: Normal speech. No focal deficits noted. Procedures None Urinary Catheter: No Vascular Central Line Catheter: No A/P Problem List: (1) Acute kidney injury ICD Code: N17.9 - Acute kidney failure, unspecified Status: Acute (2) Schizophrenia ICD Code: F20.9 - Schizophrenia Status: Acute (3) Urinary tract infection ICD Code: N39.0 - Urinary tract infection, site not specified Status: Acute Assessment and Plan 1. UTI: Urine culture is pending. Continue IV Rocephin. Patient was hospitalized in March of this year for UTI with sepsis. May need evaluation by urology for recurrent UTIs. 2. Acute kidney injury: Improving. Monitor labs. Continue IV fluids. 3. Schizophrenia: Continue home medications. 4. DVT prophylaxis: SCDs. Discharge Planning Possible discharge home tomorrow. Physical therapy is recommending home with no PT. Problem Qualifiers (1) Urinary tract infection: Qualified Codes: N30.00 - Acute cystitis without hematuria Beau Schaefer MD Aug 23, 2017 13:44
--- NOTE | 2017-08-23 16:02 | EKG ---
Date Performed: 08/22/2017 Time Performed: 14:04:51 PTAGE: 42 years EKG: Sinus rhythm NORMAL ECG Since the PREVIOUS TRACING , no significant change noted PREVIOUS TRACIN03/21/2017 19.46 DOCTOR: Pallavi Narayanan Interpretating Date/Time 08/23/2017 15:59:27
[2017-08-23] MEDS ORDERED: QUEtiapine FUMARATE 300 MG TAB PO SCH (21:00)
[2017-08-23] MEDS ORDERED: traZODone HCL 100 MG TAB PO SCH (21:00)
[2017-08-24 03:05] VITALS: BP 108/62; PULSE 87; RESP 16; TEMP 98.8; O2SAT 95
[2017-08-24] MEDS: SODIUM CHLOR 0.45% 1000 ML INJ 1,000 ML IV SCH ×2 (05:09→11:42)
[2017-08-24 08:00] VITALS: BP 135/65; PULSE 84; RESP 20; TEMP 96.9; O2SAT 98
[2017-08-24] MEDS: cefTRIAXone INJ 2,000 MG in SODIUM CHLORIDE 0.9% INJ 100 ML IV SCH (08:44)
[2017-08-24] MEDS: DIVALPROEX SODIUM E.R. 500 MG TAB PO SCH (08:44)
[2017-08-24] MEDS: risperiDONE 1 MG TAB PO SCH (08:44)
[2017-08-24] MEDS: SODIUM CHLORIDE 0.9% FLUSH 10 ML FLUSH IV FLUSH SCH (08:45)
--- NOTE | 2017-08-24 08:56 | HHI.PR ---
Subjective Remarks Follow-up on patient with UTI, CHAIM. Patient seen and examined. Patient denies any complaints. She is oriented 1. States she is good. Discussed with nursing staff, no acute issues noted. Objective Vitals Vital Signs Date Time Temp Pulse Resp B/P (MAP) Pulse Ox O2 Delivery O2 Flow Rate FiO2 08/24/17 03:05 98.8 87 16 108/62 (77) 95 08/23/17 23:43 99.7 90 16 108/61 (77) 95 08/23/17 20:18 99.8 88 16 119/70 (86) 97 08/23/17 16:25 98.0 88 20 117/65 (82) 98 08/23/17 12:05 98.2 80 20 105/60 (75) 96 I/O 08/23/17 08/23/17 08/23/17 08/24/17 08/24/17 08/24/17 07:00 15:00 23:00 07:00 15:00 23:00 Intake Total 1100 ml 1000 ml Balance 1100 ml 1000 ml Intake IV Total 1100 ml 1000 ml # Voids 3 1 1 # Bowel Movements 1 Result Diagram: 08/23/17 0645 08/23/17 0645 Imaging Last Impressions Head CT 08/22/17 1353 Signed Impressions: CONCLUSION: Unremarkable study. Chest X-Ray 08/22/17 1334 Signed Impressions: CONCLUSION: Negative examination. Objective Remarks GENERAL: Well-nourished, well-developed female, INAD. Awake and alert. Lying in bed. Oriented to self only. SKIN: Warm and dry. No generalized rash. +Abrasions noted on forehead and nose. HEENT: Normocephalic. EOMI. No sclera icterus. No nasal drainage. Mucous membranes pink and moist. CARDIOVASCULAR: Regular rate and rhythm. No murmur appreciated. RESPIRATORY: Nonlabored. Clear to auscultation. Breath sounds equal bilaterally. GASTROINTESTINAL: Abdomen soft, non-tender, nondistended. Normoactive bowel sounds x4. MUSCULOSKELETAL: No obvious deformities. Extremities without clubbing, cyanosis , or edema. NEUROLOGICAL: Awake and alert. +confused oriented to self. No obvious cranial nerve deficits. Motor grossly within normal limits. Moving all extremities spontaneously. Normal speech. PSYCHIATRIC: Calm and cooperative examination. Procedures None A/P Problem List: (1) Acute kidney injury ICD Code: N17.9 - Acute kidney failure, unspecified Status: Acute (2) Schizophrenia ICD Code: F20.9 - Schizophrenia Status: Acute (3) Urinary tract infection ICD Code: N39.0 - Urinary tract infection, site not specified Status: Acute Assessment and Plan UTI Hx of admission for UTI with sepsis in March of this year CHAIM Schizophrenia -Continue on home medications DVT prophylaxis -patient is ambulatory Problem Qualifiers (1) Urinary tract infection: Qualified Codes: N30.00 - Acute cystitis without hematuria Drea Torres Aug 24, 2017 08:56
[2017-08-24 10:15] LABS: AUTOMATED NEUTROPHIL # 4.7 TH/MM3 (1.8-7.7); BASOPHIL % 0.5 % (0.0-2.0); EOSINOPHIL # 0.1 TH/MM3 (0-0.4); EOSINOPHIL % 0.7 % (0.0-4.0); HEMATOCRIT 22.6 % (35.0-46.0); HEMOGLOBIN 7.7 GM/DL (11.6-15.3); LYMPH % 20.9 % (9.0-44.0); LYMPHOCYTE # 1.6 TH/MM3 (1.0-4.8); MEAN CELL VOLUME 97.2 FL (80.0-100.0); MEAN CORPUSCULAR HEMOGLOBIN 33.1 PG (27.0-34.0); MEAN CORPUSCULAR HGB CONC 34.1 % (32.0-36.0); MEAN PLATELET VOLUME 7.9 FL (7.0-11.0); MONO % 18.3 % (0.0-8.0); MONOCYTE # 1.4 TH/MM3 (0-0.9); NEUT % 59.6 % (16.0-70.0); PLATELET COUNT 148 TH/MM3 (150-450); RED BLOOD COUNT 2.32 MIL/MM3 (4.00-5.30); RED CELL DISTRIBUTION WIDTH 16.8 % (11.6-17.2); WHITE BLOOD COUNT 7.8 TH/MM3 (4.0-11.0)
[2017-08-24 10:46] LABS: BANDS 11 % (0-6); LYMPHOCYTES 17 % (9-44); MONOCYTES 10 % (0-8); MYELOCYTES 4 % (0-0); NEUTROPHIL # MANUAL DIFF 5.7 TH/MM3 (1.8-7.7); POLYS (SEG NEUTROPHILS) 58 % (16-70)
[2017-08-24] MEDS: FERROUS SULFATE 325 MG (65 MG ELEMENTAL IRON) TAB PO SCH (11:44)
[2017-08-24 12:00] VITALS: BP 111/60; PULSE 82; RESP 20; TEMP 97.8; O2SAT 96
[2017-08-24] MEDS ORDERED: FERR325T20 PO (12:01)
[2017-08-24] MEDS ORDERED: CEFU1TAB18 PO (12:01)
--- NOTE | 2017-08-24 12:03 | HHI.DCPOC ---
Discharge Care Plan Diagnosis: (1) Urinary tract infection (2) Anemia (3) Schizophrenia (4) Acute kidney injury Goals to Promote Your Health * To prevent worsening of your condition and complications * To maintain your health at the optimal level Directions to Meet Your Goals Take your medications as prescribed Follow your dietary instruction Follow activity as directed Keep your appointments as scheduled Take your immunizations and boosters as scheduled If your symptoms worsen call your PCP, if no PCP go to Urgent Care Center or Emergency Room Smoking is Dangerous to Your Health. Avoid second hand smoke Call the 24-hour hour crisis hotline for domestic abuse at Drea Torres Aug 24, 2017 12:03
[2017-08-24] MEDS ORDERED: CEFUROXIME AXETIL 250 MG TAB PO SCH (21:00)
[2017-08-25] MEDS ORDERED: FERROUS SULFATE 325 MG (65 MG ELEMENTAL IRON) TAB PO SCH (09:00)
== END 2017-08-24 14:41 | disposition home or self-care (01) ==
LOC: NEPD 12:26 → NEDA 16:32 → NEPHCDU 19:15
PROVIDERS: ADMIT Internal Medicine; ATTEND Internal Medicine
DX: N17.9 Acute kidney failure, unspecified (principal); F20.9 Schizophrenia, unspecified; N30.00 Acute cystitis without hematuria; R41.0 Disorientation, unspecified; S00.93XA Contusion of unspecified part of head, initial encounter; I10 Essential (primary) hypertension; E78.5 Hyperlipidemia, unspecified; D64.9 Anemia, unspecified; R06.00 Dyspnea, unspecified; M54.5 Low back pain; G89.29 Other chronic pain; R29.6 Repeated falls; F31.9 Bipolar disorder, unspecified; F17.210 Nicotine dependence, cigarettes, uncomplicated; Z79.899 Other long term (current) drug therapy; W19.XXXA Unspecified fall, initial encounter
CPT/HCPCS: 70450; 71045; 80053; 81001; 82272; 82550; 82728; 83540; 83550; 83605; 83690; 83735; 84484; 85007; 85025; 85027; 85610; 85730; 87086; 93005; 96361; 96365; 96366; 97161; 99285; G0378; G8987; G8988; J0696; J7030